=== PATIENT | female | born 1945 | race Caucasian/White ===

== ENCOUNTER → 2017-01-24 | Outpatient (REF) | payer MEDICARE, OTHER ==
[2017-01-30 08:07] LABS: D001-IgE D pteronyssinus 0.99 kU/L (Class II); E001-IgE Cat Epith/Dander < 0.10 kU/L (Class 0); E005-IgE Dog Dander < 0.10 kU/L (Class 0); G002-IgE Bermuda Grass < 0.10 kU/L (Class 0); G008-IgE Kentucky Bluegrass < 0.10 kU/L (Class 0); M001-IgE Penicillium chrysogen < 0.10 kU/L (Class 0); M002 IgE Cladosporium herbaru < 0.10 kU/L (Class 0); M003 IgE Aspergillus fumigatu < 0.10 kU/L (Class 0); M006-IgE Alternaria alternata < 0.10 kU/L (Class 0); T001-IgE Maple/Box Elder < 0.10 kU/L (Class 0); T007-IgE Oak, White < 0.10 kU/L (Class 0); T008-IgE Elm, American < 0.10 kU/L (Class 0); W001-IgE Ragweed, Short < 0.10 kU/L (Class 0); W014-IgE Pigweed, Rough < 0.10 kU/L (Class 0)
== END ==
LOC: M LAB REF 13:51
PROVIDERS: ATTEND Internal Medicine Pulmonary Disease
DX: J45.50 Severe persistent asthma, uncomplicated (principal)

== ENCOUNTER 2017-05-01 09:04 | Outpatient (CLI) | payer MEDICARE, BC, OTHER ==
[2017-05-01] MEDS: OMALIZUMAB 150 MG (XOLAIR) VIAL (J2357) SC (09:56)
== END 2017-05-01 11:05 | disposition home or self-care (01) ==
LOC: M INFU 09:04
DX: J45.50 Severe persistent asthma, uncomplicated (principal); Z88.0 Allergy status to penicillin; Z79.899 Other long term (current) drug therapy
CPT/HCPCS: 96372

== ENCOUNTER 2017-05-17 12:50 | Outpatient (CLI) | payer MEDICARE, BC, OTHER ==
[2017-05-17] MEDS: OMALIZUMAB 150 MG (XOLAIR) VIAL (J2357) SC (13:53)
== END 2017-05-17 15:45 | disposition home or self-care (01) ==
LOC: M INFU 12:50
DX: J45.50 Severe persistent asthma, uncomplicated (principal); I10 Essential (primary) hypertension; K21.9 Gastro-esophageal reflux disease without esophagitis; Z79.899 Other long term (current) drug therapy; Z88.0 Allergy status to penicillin
CPT/HCPCS: 96372

== ENCOUNTER 2017-05-30 09:39 | Outpatient (CLI) | payer MEDICARE, BC, OTHER ==
[2017-05-30] MEDS: OMALIZUMAB 150 MG (XOLAIR) VIAL (J2357) SC (09:46)
== END 2017-05-30 10:45 | disposition home or self-care (01) ==
LOC: M INFU 09:39
DX: J45.50 Severe persistent asthma, uncomplicated (principal); I10 Essential (primary) hypertension; K21.9 Gastro-esophageal reflux disease without esophagitis; Z79.899 Other long term (current) drug therapy; Z88.0 Allergy status to penicillin
CPT/HCPCS: J2357

== ENCOUNTER 2017-06-13 08:07 | Outpatient (CLI) | payer MEDICARE, BC, OTHER ==
[2017-06-13] MEDS: OMALIZUMAB 150 MG (XOLAIR) VIAL (J2357) SC (09:16)
== END 2017-06-13 10:30 | disposition home or self-care (01) ==
LOC: M INFU 08:07
DX: J45.50 Severe persistent asthma, uncomplicated (principal); K21.9 Gastro-esophageal reflux disease without esophagitis; Z79.899 Other long term (current) drug therapy; Z88.0 Allergy status to penicillin
CPT/HCPCS: J2357

== ENCOUNTER 2017-06-28 09:03 | Outpatient (CLI) | payer MEDICARE, BC, OTHER ==
[2017-06-28] MEDS: OMALIZUMAB 150 MG (XOLAIR) VIAL (J2357) SC (09:11)
== END 2017-06-28 10:15 | disposition home or self-care (01) ==
LOC: M INFU 09:03
DX: J45.50 Severe persistent asthma, uncomplicated (principal); Z88.0 Allergy status to penicillin; Z79.899 Other long term (current) drug therapy
CPT/HCPCS: J2357

== ENCOUNTER 2017-07-26 13:11 | Outpatient (CLI) | payer MEDICARE, BC, OTHER ==
[2017-07-26] MEDS: OMALIZUMAB 150 MG (XOLAIR) VIAL (J2357) SC (14:04)
== END 2017-07-26 15:00 | disposition home or self-care (01) ==
LOC: M INFU 13:11
DX: J45.50 Severe persistent asthma, uncomplicated (principal); Z79.899 Other long term (current) drug therapy
CPT/HCPCS: J2357

== ENCOUNTER 2017-08-09 16:07 | Outpatient (CLI) | payer MEDICARE, BC, OTHER ==
[2017-08-09] MEDS: OMALIZUMAB 150 MG (XOLAIR) VIAL (J2357) SC (16:25)
== END 2017-08-09 17:25 | disposition home or self-care (01) ==
LOC: M INFU 16:07
DX: J45.50 Severe persistent asthma, uncomplicated (principal); G47.30 Sleep apnea, unspecified; K21.9 Gastro-esophageal reflux disease without esophagitis; Z79.899 Other long term (current) drug therapy; Z88.0 Allergy status to penicillin
CPT/HCPCS: J2357

== ENCOUNTER 2017-08-22 12:28 | Outpatient (CLI) | payer MEDICARE, BC, OTHER ==
[2017-08-22] MEDS: OMALIZUMAB 150 MG (XOLAIR) VIAL (J2357) SC (13:04)
== END 2017-08-22 14:00 | disposition home or self-care (01) ==
LOC: M INFU 12:28
DX: J45.50 Severe persistent asthma, uncomplicated (principal); K21.9 Gastro-esophageal reflux disease without esophagitis; Z79.899 Other long term (current) drug therapy; Z88.0 Allergy status to penicillin; Z98.51 Tubal ligation status
CPT/HCPCS: J2357

== ENCOUNTER 2017-09-05 15:31 | Outpatient (CLI) | payer MEDICARE, BC, OTHER ==
[2017-09-05] MEDS: OMALIZUMAB 150 MG (XOLAIR) VIAL (J2357) SC (15:58)
== END 2017-09-05 16:45 | disposition home or self-care (01) ==
LOC: M INFU 15:31
DX: J45.50 Severe persistent asthma, uncomplicated (principal); K21.9 Gastro-esophageal reflux disease without esophagitis; Z79.899 Other long term (current) drug therapy; Z88.0 Allergy status to penicillin
CPT/HCPCS: J2357

== ENCOUNTER 2017-09-19 07:21 | Outpatient (CLI) | payer MEDICARE, BC, OTHER ==
[2017-09-19] MEDS: OMALIZUMAB 150 MG (XOLAIR) VIAL (J2357) SC (08:25)
== END 2017-09-19 09:00 | disposition home or self-care (01) ==
LOC: M INFU 07:21
DX: J45.50 Severe persistent asthma, uncomplicated (principal); Z79.899 Other long term (current) drug therapy; Z80.0 Family history of malignant neoplasm of digestive organs; K21.9 Gastro-esophageal reflux disease without esophagitis
CPT/HCPCS: J2357

== ENCOUNTER 2017-10-03 13:29 | Outpatient (CLI) | payer MEDICARE, BC, OTHER ==
[2017-10-03] MEDS ORDERED: OMALIZUMAB 150 MG (XOLAIR) VIAL (J2357) SC (14:00)
[2017-10-03] MEDS ORDERED: MIXING FEE FOR PATIENT OWN MEDS SUPPLIED BY INSURANCE/PT XX (14:00)
== END 2017-10-03 15:05 | disposition home or self-care (01) ==
LOC: M INFU 13:29
DX: J45.50 Severe persistent asthma, uncomplicated (principal); Z88.0 Allergy status to penicillin; Z79.899 Other long term (current) drug therapy
CPT/HCPCS: 96372

== ENCOUNTER 2017-10-17 11:46 | Outpatient (CLI) | payer MEDICARE, BC, OTHER ==
[2017-10-22] MEDS ORDERED: MIXING FEE FOR PATIENT OWN MEDS SUPPLIED BY INSURANCE/PT XX (12:00)
[2017-10-22] MEDS: OMALIZUMAB 150 MG (XOLAIR) VIAL (J2357) SC (12:08)
== END 2017-10-22 14:00 | disposition home or self-care (01) ==
LOC: M INFU 11:46
DX: J45.50 Severe persistent asthma, uncomplicated (principal); Z88.0 Allergy status to penicillin; Z79.899 Other long term (current) drug therapy
CPT/HCPCS: 96372

== ENCOUNTER 2017-11-05 07:55 | Outpatient (CLI) | payer MEDICARE, BC, OTHER ==
[2017-11-05] MEDS ORDERED: MIXING FEE FOR PATIENT OWN MEDS SUPPLIED BY INSURANCE/PT XX ×2 (08:15)
[2017-11-05] MEDS: OMALIZUMAB 150 MG (XOLAIR) VIAL (J2357) SC ×2 (09:14)
== END 2017-11-05 09:30 | disposition home or self-care (01) ==
LOC: M INFU 07:55
DX: J45.50 Severe persistent asthma, uncomplicated (principal); Z88.0 Allergy status to penicillin; Z79.899 Other long term (current) drug therapy
CPT/HCPCS: 96372

== ENCOUNTER 2017-11-19 08:57 | Outpatient (CLI) | payer MEDICARE, BC, OTHER ==
[2017-11-19] MEDS ORDERED: MIXING FEE FOR PATIENT OWN MEDS SUPPLIED BY INSURANCE/PT XX (10:00)
[2017-11-19] MEDS: OMALIZUMAB 150 MG (XOLAIR) VIAL (J2357) SC (10:02)
== END 2017-11-19 10:30 | disposition home or self-care (01) ==
LOC: M INFU 08:57
DX: J45.50 Severe persistent asthma, uncomplicated (principal); Z88.0 Allergy status to penicillin; Z79.899 Other long term (current) drug therapy
CPT/HCPCS: 36415

== ENCOUNTER → 2017-12-10 | Outpatient (CLI) | payer MEDICARE, BC, OTHER ==
[~2017-12-10] MED LIST: MIXING FEE FOR PATIENT OWN MEDS SUPPLIED BY INSURANCE/PT XX
[2017-12-10] MEDS: OMALIZUMAB 150 MG (XOLAIR) VIAL (J2357) SC (12:12)
== END ==
LOC: M INFU 11:15
DX: J45.50 Severe persistent asthma, uncomplicated (principal); Z88.0 Allergy status to penicillin; Z79.899 Other long term (current) drug therapy
CPT/HCPCS: 96372

== ENCOUNTER → 2017-12-24 | Outpatient (CLI) | payer MEDICARE, BC, OTHER ==
[~2017-12-24] MED LIST changes: -MIXING FEE FOR PATIENT OWN MEDS SUPPLIED BY INSURANCE/PT XX; +OMALIZUMAB 150 MG (XOLAIR) VIAL (J2357) SC
== END ==
LOC: M INFU 12:00
DX: J45.909 Unspecified asthma, uncomplicated (principal); Z53.8 Procedure and treatment not carried out for other reasons

== ENCOUNTER 2017-12-31 07:55 | Outpatient (CLI) | payer MEDICARE, BC, OTHER ==
[2017-12-31] MEDS: OMALIZUMAB 150 MG (XOLAIR) VIAL (J2357) SC (08:50)
== END 2017-12-31 09:30 | disposition home or self-care (01) ==
LOC: M INFU 07:55
DX: J45.50 Severe persistent asthma, uncomplicated (principal); Z88.0 Allergy status to penicillin; Z79.899 Other long term (current) drug therapy
CPT/HCPCS: 96372

== ENCOUNTER 2018-01-15 11:14 | Outpatient (CLI) | payer MEDICARE, BC, OTHER ==
[2018-01-15] MEDS: OMALIZUMAB 150 MG (XOLAIR) VIAL (J2357) SC (12:18)
== END 2018-01-15 13:00 | disposition home or self-care (01) ==
LOC: M INFU 11:14
DX: J45.50 Severe persistent asthma, uncomplicated (principal); Z88.0 Allergy status to penicillin; Z79.899 Other long term (current) drug therapy
CPT/HCPCS: 96372

== ENCOUNTER 2018-01-29 12:01 | Outpatient (CLI) | payer MEDICARE, BC, OTHER ==
[2018-01-29] MEDS: OMALIZUMAB 150 MG (XOLAIR) VIAL (J2357) SC (12:13)
== END 2018-01-29 12:35 | disposition home or self-care (01) ==
LOC: M INFU 12:01
DX: J45.50 Severe persistent asthma, uncomplicated (principal); Z79.899 Other long term (current) drug therapy; Z88.0 Allergy status to penicillin
CPT/HCPCS: 96372

== ENCOUNTER 2018-02-14 13:10 | Outpatient (CLI) | payer MEDICARE, BC, OTHER ==
[2018-02-14] MEDS: OMALIZUMAB 150 MG (XOLAIR) VIAL (J2357) SC (14:13)
== END 2018-02-14 14:25 | disposition home or self-care (01) ==
LOC: M INFU 13:10
DX: J45.50 Severe persistent asthma, uncomplicated (principal); Z88.0 Allergy status to penicillin
CPT/HCPCS: 96372

== ENCOUNTER 2018-03-07 10:28 | Outpatient (CLI) | payer MEDICARE, BC, OTHER ==
[~2018-03-07] VITALS: Ht 156.5 cm; Wt 75.4 kg
[~2018-03-07 10:28] MED LIST changes: +ADV500INH INH; +FLUT22IN INH; -OMALIZUMAB 150 MG (XOLAIR) VIAL (J2357) SC; +PANT40TA3 PO; +PROAAER10 INH; +SERT50TA PO; +SING10TA32 PO; +XOLA150S SC
[2018-03-07 10:30] VITALS: BP 169/74
[2018-03-07] MEDS ORDERED: OMALIZUMAB 150 MG (XOLAIR) VIAL (J2357) SC ONE (11:00)
[2018-03-07 11:15] VITALS: BP 141/70
== END 2018-03-07 11:30 | disposition home or self-care (01) ==
LOC: M INFU 10:28
PROVIDERS: ATTEND Internal Medicine Pulmonary Disease
DX: J45.50 Severe persistent asthma, uncomplicated (principal); Z79.899 Other long term (current) drug therapy; Z88.0 Allergy status to penicillin

== ENCOUNTER 2018-03-24 08:35 | Outpatient (CLI) | payer MEDICARE, BC, OTHER ==
[~2018-03-24] VITALS: Ht 157.5 cm; Wt 75.0 kg
[2018-03-24 08:40] VITALS: BP 160/73
[2018-03-24] MEDS ORDERED: OMALIZUMAB 150 MG (XOLAIR) VIAL (J2357) SC ONE (09:00)
[2018-03-24 09:39] VITALS: BP 141/78
== END 2018-03-24 10:00 | disposition home or self-care (01) ==
LOC: M INFU 08:35
PROVIDERS: ATTEND Internal Medicine Pulmonary Disease
DX: J45.50 Severe persistent asthma, uncomplicated (principal); Z88.0 Allergy status to penicillin

== ENCOUNTER 2018-04-10 13:16 | Outpatient (CLI) | payer MEDICARE, BC, OTHER ==
[~2018-04-10] VITALS: Ht 157.5 cm; Wt 74.5 kg
[2018-04-10 13:20] VITALS: BP 136/65
[2018-04-10] MEDS ORDERED: OMALIZUMAB 150 MG (XOLAIR) VIAL (J2357) SC ONE (13:30)
[2018-04-10 14:30] VITALS: BP 142/72
== END 2018-04-10 14:30 | disposition home or self-care (01) ==
LOC: M INFU 13:16
PROVIDERS: ATTEND Internal Medicine Pulmonary Disease
DX: J45.50 Severe persistent asthma, uncomplicated (principal)

== ENCOUNTER 2018-05-05 08:46 | Outpatient (CLI) | payer MEDICARE, BC, OTHER ==
[~2018-05-05] VITALS: Ht 157.5 cm; Wt 74.5 kg
[2018-05-05 08:50] VITALS: BP 133/71
[2018-05-05] MEDS ORDERED: OMALIZUMAB 150 MG (XOLAIR) VIAL (J2357) SC ONE (09:00)
[2018-05-05 10:00] VITALS: BP 123/75
== END 2018-05-05 10:00 | disposition home or self-care (01) ==
LOC: M INFU 08:46
PROVIDERS: ATTEND Internal Medicine Pulmonary Disease
DX: J45.50 Severe persistent asthma, uncomplicated (principal); Z88.0 Allergy status to penicillin; Z79.899 Other long term (current) drug therapy

== ENCOUNTER 2018-05-26 13:28 | Outpatient (CLI) | payer MEDICARE, BC, OTHER ==
[~2018-05-26] VITALS: Ht 157.5 cm; Wt 74.5 kg
[2018-05-26 13:30] VITALS: BP 156/75
[2018-05-26] MEDS ORDERED: OMALIZUMAB 150 MG (XOLAIR) VIAL (J2357) SC ONE (14:00)
[2018-05-26 14:45] VITALS: BP 126/69
== END 2018-05-26 14:45 | disposition home or self-care (01) ==
LOC: M INFU 13:28
PROVIDERS: ATTEND Internal Medicine Pulmonary Disease
DX: J45.50 Severe persistent asthma, uncomplicated (principal); Z79.899 Other long term (current) drug therapy; Z88.0 Allergy status to penicillin

== ENCOUNTER 2018-06-09 13:24 | Outpatient (CLI) | payer MEDICARE, BC, OTHER ==
[~2018-06-09] VITALS: Ht 157.5 cm; Wt 74.5 kg
[2018-06-09 13:30] VITALS: BP 151/67
[2018-06-09] MEDS ORDERED: OMALIZUMAB 150 MG (XOLAIR) VIAL (J2357) SC ONE (14:00)
[2018-06-09 14:59] VITALS: BP 159/72
== END 2018-06-09 15:00 | disposition home or self-care (01) ==
LOC: M INFU 13:24
PROVIDERS: ATTEND Internal Medicine Pulmonary Disease
DX: J45.50 Severe persistent asthma, uncomplicated (principal); Z88.0 Allergy status to penicillin; Z79.899 Other long term (current) drug therapy

== ENCOUNTER 2018-06-23 13:34 | Outpatient (CLI) | payer MEDICARE, BC, OTHER ==
[~2018-06-23] VITALS: Ht 157.5 cm; Wt 74.5 kg
[2018-06-23 13:40] VITALS: BP 140/62
[2018-06-23] MEDS ORDERED: OMALIZUMAB 150 MG (XOLAIR) VIAL (J2357) SC ONE (14:30)
[2018-06-23 14:50] VITALS: BP 130/72
== END 2018-06-23 14:50 | disposition home or self-care (01) ==
LOC: M INFU 13:34
PROVIDERS: ATTEND Internal Medicine Pulmonary Disease
DX: J45.50 Severe persistent asthma, uncomplicated (principal); Z79.899 Other long term (current) drug therapy; Z80.0 Family history of malignant neoplasm of digestive organs

== ENCOUNTER 2018-07-07 13:17 | Outpatient (CLI) | payer MEDICARE, BC, OTHER ==
[~2018-07-07] VITALS: Ht 157.5 cm; Wt 74.6 kg
[~2018-07-07 13:17] MED LIST changes: +SERT-141 PO; -SERT50TA PO
[2018-07-07 13:30] VITALS: BP 164/69
[2018-07-07] MEDS ORDERED: OMALIZUMAB 150 MG (XOLAIR) VIAL (J2357) SC ONE (14:00)
[2018-07-07 14:20] VITALS: BP 133/89
[2018-07-08] MEDS ORDERED: SIMV10TA2 PO (13:54)
[2018-07-08] MEDS ORDERED: LOSA50TA88 PO (13:54)
== END 2018-07-07 14:20 | disposition home or self-care (01) ==
LOC: M INFU 13:17
PROVIDERS: ATTEND Internal Medicine Pulmonary Disease
DX: J45.50 Severe persistent asthma, uncomplicated (principal); Z88.0 Allergy status to penicillin

== ENCOUNTER 2018-07-21 13:32 | Outpatient (CLI) | payer MEDICARE, BC, OTHER ==
[~2018-07-21] VITALS: Ht 157.5 cm; Wt 74.5 kg
[~2018-07-21 13:32] MED LIST changes: +LOSA50TA88 PO; +SIMV10TA2 PO
[2018-07-21 13:35] VITALS: BP 158/68
[2018-07-21] MEDS ORDERED: OMALIZUMAB 150 MG (XOLAIR) VIAL (J2357) SC ONE (14:00)
[2018-07-21 15:00] VITALS: BP 164/70
== END 2018-07-21 15:00 | disposition home or self-care (01) ==
LOC: M INFU 13:32
PROVIDERS: ATTEND Internal Medicine Pulmonary Disease
DX: J45.50 Severe persistent asthma, uncomplicated (principal); Z88.0 Allergy status to penicillin; Z79.899 Other long term (current) drug therapy

== ENCOUNTER 2018-08-08 13:19 | Outpatient (CLI) | payer MEDICARE, BC, OTHER ==
[~2018-08-08] VITALS: Ht 157.5 cm; Wt 74.5 kg
[2018-08-08 13:35] VITALS: BP 149/67
[2018-08-08] MEDS ORDERED: OMALIZUMAB 150 MG (XOLAIR) VIAL (J2357) SC ONE (14:00)
[2018-08-08 14:45] VITALS: BP 140/75
== END 2018-08-08 14:45 | disposition home or self-care (01) ==
LOC: M INFU 13:19
PROVIDERS: ATTEND Internal Medicine Pulmonary Disease
DX: J45.50 Severe persistent asthma, uncomplicated (principal); Z88.0 Allergy status to penicillin; Z79.899 Other long term (current) drug therapy

== ENCOUNTER 2018-08-27 15:02 | Outpatient (CLI) | payer MEDICARE, BC, OTHER ==
[~2018-08-27] VITALS: Ht 157.5 cm; Wt 74.5 kg
[2018-08-27 15:32] VITALS: BP 145/75
[2018-08-27] MEDS ORDERED: OMALIZUMAB 150 MG (XOLAIR) VIAL (J2357) SC ONE (16:00)
[2018-08-27 16:20] VITALS: BP 166/71
== END 2018-08-27 16:25 | disposition home or self-care (01) ==
LOC: M INFU 15:02
PROVIDERS: ATTEND Internal Medicine Pulmonary Disease
DX: J45.50 Severe persistent asthma, uncomplicated (principal); Z79.899 Other long term (current) drug therapy; Z88.0 Allergy status to penicillin

== ENCOUNTER 2018-10-03 13:20 | Outpatient (CLI) | payer MEDICARE, BC, OTHER ==
[~2018-10-03] VITALS: Ht 157.5 cm; Wt 74.5 kg
[2018-10-03] MEDS ORDERED: OMALIZUMAB 150 MG (XOLAIR) VIAL (J2357) SC ONE (13:30)
[2018-10-03 13:47] VITALS: BP 129/79
[2018-10-03 14:15] VITALS: BP 146/69
== END 2018-10-03 13:25 | disposition home or self-care (01) ==
LOC: M INFU 13:20
PROVIDERS: ATTEND Internal Medicine Pulmonary Disease
DX: J45.50 Severe persistent asthma, uncomplicated (principal); Z79.899 Other long term (current) drug therapy; Z88.0 Allergy status to penicillin

== ENCOUNTER 2018-10-17 11:32 | Outpatient (CLI) | payer MEDICARE, BC, OTHER ==
[~2018-10-17] VITALS: Ht 157.5 cm; Wt 74.5 kg
[~2018-10-17 11:32] MED LIST changes: -SIMV10TA2 PO; +SIMV10TA21 PO
[2018-10-17 11:40] VITALS: BP 160/78
[2018-10-17] MEDS ORDERED: OMALIZUMAB 150 MG (XOLAIR) VIAL (J2357 PER 5MG) SC ONE (12:00)
[2018-10-17 13:40] VITALS: BP 122/68
== END 2018-10-17 13:40 | disposition home or self-care (01) ==
LOC: M INFU 11:32
PROVIDERS: ATTEND Internal Medicine Pulmonary Disease
DX: J45.50 Severe persistent asthma, uncomplicated (principal); Z79.899 Other long term (current) drug therapy; Z88.0 Allergy status to penicillin

== ENCOUNTER 2018-10-31 15:35 | Outpatient (CLI) | payer MEDICARE, BC, OTHER ==
[~2018-10-31] VITALS: Ht 157.5 cm; Wt 74.5 kg
[~2018-10-31 15:35] MED LIST changes: +SIMV10TA2 PO; -SIMV10TA21 PO
[2018-10-31 15:45] VITALS: BP 106/66
[2018-10-31] MEDS ORDERED: OMALIZUMAB 150 MG (XOLAIR) VIAL (J2357) SC ONE (16:00)
[2018-10-31 16:45] VITALS: BP 118/76
== END 2018-10-31 16:45 | disposition home or self-care (01) ==
LOC: M INFU 15:35
PROVIDERS: ATTEND Internal Medicine Pulmonary Disease
DX: J45.909 Unspecified asthma, uncomplicated (principal); Z79.899 Other long term (current) drug therapy

== ENCOUNTER 2018-11-18 13:34 | Outpatient (CLI) | payer MEDICARE, BC, OTHER ==
[~2018-11-18] VITALS: Ht 158.8 cm; Wt 72.9 kg
[~2018-11-18 13:34] MED LIST changes: -SIMV10TA2 PO; +SIMV10TA21 PO
[2018-11-18 13:35] VITALS: BP 133/67
[2018-11-18] MEDS ORDERED: OMALIZUMAB 150 MG (XOLAIR) VIAL (J2357 PER 5MG) SC ONE (14:00)
[2018-11-18 14:40] VITALS: BP 148/66
== END 2018-11-18 14:40 | disposition home or self-care (01) ==
LOC: M INFU 13:34
PROVIDERS: ATTEND Internal Medicine Pulmonary Disease
DX: J45.50 Severe persistent asthma, uncomplicated (principal); Z79.899 Other long term (current) drug therapy

== ENCOUNTER 2018-12-04 12:45 | Outpatient (CLI) | payer MEDICARE, BC, OTHER ==
[~2018-12-04] VITALS: Ht 157.5 cm; Wt 74.4 kg
[2018-12-04 12:45] VITALS: BP 151/75
[~2018-12-04 12:45] MED LIST changes: +SIMV10TA2 PO; -SIMV10TA21 PO
[2018-12-04] MEDS ORDERED: OMALIZUMAB 150 MG (XOLAIR) VIAL (J2357 PER 5MG) SC ONE (13:00)
[2018-12-04 13:50] VITALS: BP 147/65
== END 2018-12-04 13:50 | disposition home or self-care (01) ==
LOC: M INFU 12:45
PROVIDERS: ATTEND Internal Medicine Pulmonary Disease
DX: J45.50 Severe persistent asthma, uncomplicated (principal); Z79.899 Other long term (current) drug therapy; Z88.0 Allergy status to penicillin

== ENCOUNTER 2018-12-18 13:58 | Outpatient (CLI) | payer MEDICARE, BC, OTHER ==
[~2018-12-18] VITALS: Ht 157.5 cm; Wt 74.5 kg
[2018-12-18 14:00] VITALS: BP 143/74
[2018-12-18] MEDS ORDERED: OMALIZUMAB 150 MG (XOLAIR) VIAL (J2357 PER 5MG) SC ONE (15:00)
[2018-12-18 15:15] VITALS: BP 150/72
== END 2018-12-18 15:15 | disposition home or self-care (01) ==
LOC: M INFU 13:58
PROVIDERS: ATTEND Internal Medicine Pulmonary Disease
DX: J45.50 Severe persistent asthma, uncomplicated (principal)

== ENCOUNTER 2019-01-08 13:35 | Outpatient (CLI) | payer MEDICARE, BC, OTHER ==
[~2019-01-08] VITALS: Ht 157.5 cm; Wt 74.4 kg
[2019-01-08 13:40] VITALS: BP 148/86
[2019-01-08] MEDS ORDERED: OMALIZUMAB 150 MG (XOLAIR) VIAL (J2357 PER 5MG) SC ONE (14:30)
[2019-01-08 14:50] VITALS: BP 130/77
== END 2019-01-08 14:50 | disposition home or self-care (01) ==
LOC: M INFU 13:35
PROVIDERS: ATTEND Internal Medicine Pulmonary Disease
DX: J45.50 Severe persistent asthma, uncomplicated (principal); Z79.899 Other long term (current) drug therapy; Z88.0 Allergy status to penicillin

== ENCOUNTER 2019-01-22 13:31 | Outpatient (CLI) | payer MEDICARE, BC, OTHER ==
[~2019-01-22] VITALS: Ht 157.5 cm; Wt 74.4 kg
[2019-01-22 13:35] VITALS: BP 138/67
[2019-01-22] MEDS ORDERED: OMALIZUMAB 150 MG (XOLAIR) VIAL (J2357 PER 5MG) SC ONE (14:00)
[2019-01-22 14:45] VITALS: BP 153/71
== END 2019-01-22 14:45 | disposition home or self-care (01) ==
LOC: M INFU 13:31
PROVIDERS: ATTEND Internal Medicine Pulmonary Disease
DX: J45.50 Severe persistent asthma, uncomplicated (principal); Z79.899 Other long term (current) drug therapy; Z88.0 Allergy status to penicillin

== ENCOUNTER 2019-02-05 13:52 | Outpatient (CLI) | payer MEDICARE, BC, OTHER ==
[~2019-02-05] VITALS: Ht 157.5 cm; Wt 74.4 kg
[2019-02-05 14:00] VITALS: BP 127/69
[2019-02-05] MEDS ORDERED: OMALIZUMAB 150 MG (XOLAIR) VIAL (J2357 PER 5MG) SC ONE (14:30)
[2019-02-05 14:40] VITALS: BP 149/72
== END 2019-02-05 14:40 | disposition home or self-care (01) ==
LOC: M INFU 13:52
PROVIDERS: ATTEND Internal Medicine Pulmonary Disease
DX: J45.50 Severe persistent asthma, uncomplicated (principal); Z88.0 Allergy status to penicillin; Z79.899 Other long term (current) drug therapy

== ENCOUNTER 2019-02-19 13:33 | Outpatient (CLI) | payer MEDICARE, BC, OTHER ==
[~2019-02-19] VITALS: Ht 157.5 cm; Wt 74.5 kg
[2019-02-19 13:53] VITALS: BP 131/77
[2019-02-19] MEDS ORDERED: OMALIZUMAB 150 MG (XOLAIR) VIAL (J2357 PER 5MG) SC ONE (14:00)
[2019-02-19 14:40] VITALS: BP 132/74
== END 2019-02-19 14:32 | disposition home or self-care (01) ==
LOC: M INFU 13:33
PROVIDERS: ATTEND Internal Medicine Pulmonary Disease
DX: J45.50 Severe persistent asthma, uncomplicated (principal); Z88.0 Allergy status to penicillin; Z79.51 Long term (current) use of inhaled steroids; Z79.899 Other long term (current) drug therapy

== ENCOUNTER 2019-03-26 13:03 | Outpatient (CLI) | payer MEDICARE, BC, OTHER ==
[~2019-03-26] VITALS: Ht 157.5 cm; Wt 74.5 kg
[~2019-03-26 13:03] MED LIST changes: -SIMV10TA2 PO; +SIMV10TA21 PO
[2019-03-26 13:22] VITALS: BP 167/85
[2019-03-26] MEDS ORDERED: OMALIZUMAB 150MG 1ML SYRINGE (XOLAIR) (J2357 PER 5MG) SQ ONE ×2 (14:00)
[2019-03-26] MEDS ORDERED: OMALIZUMAB SQ ONE (14:00)
[2019-03-26 14:26] VITALS: BP 142/78
== END 2019-03-26 14:20 | disposition home or self-care (01) ==
LOC: M INFU 13:03
PROVIDERS: ATTEND Internal Medicine Pulmonary Disease
DX: J45.50 Severe persistent asthma, uncomplicated (principal); Z88.0 Allergy status to penicillin

== ENCOUNTER → 2019-04-09 | Outpatient (CLI) | payer MEDICARE, BC, OTHER | LOC: M INFU 14:42 | PROVIDERS: ATTEND Internal Medicine Pulmonary Disease | DX: J45.50 Severe persistent asthma, uncomplicated (principal); Z53.9 Procedure and treatment not carried out, unspecified reason ==

== ENCOUNTER 2019-04-17 12:53 | Outpatient (CLI) | payer MEDICARE, BC, OTHER ==
[~2019-04-17] VITALS: Ht 157.5 cm; Wt 74.4 kg
[2019-04-17 13:13] VITALS: BP 139/88
[2019-04-17 13:39] VITALS: BP 134/79
[2019-04-17] MEDS ORDERED: OMALIZUMAB SQ ONE (14:00)
[2019-04-17] MEDS ORDERED: OMALIZUMAB 150MG 1ML SYRINGE (XOLAIR) (J2357 PER 5MG) SQ ONE (14:00)
== END 2019-04-17 14:00 | disposition home or self-care (01) ==
LOC: M INFU 12:53
PROVIDERS: ATTEND Internal Medicine Pulmonary Disease
DX: J45.50 Severe persistent asthma, uncomplicated (principal); Z88.0 Allergy status to penicillin

== ENCOUNTER 2019-05-06 13:11 | Outpatient (CLI) | payer MEDICARE, BC, OTHER ==
[~2019-05-06] VITALS: Ht 157.5 cm; Wt 74.5 kg
[2019-05-06 13:22] VITALS: BP 129/67
[2019-05-06] MEDS ORDERED: OMALIZUMAB 150MG 1ML SYRINGE (XOLAIR) (J2357 PER 5MG) SQ ONE (14:00)
[2019-05-06] MEDS ORDERED: OMALIZUMAB SQ ONE (14:00)
[2019-05-06 14:15] VITALS: BP 135/67
== END 2019-05-06 14:15 | disposition home or self-care (01) ==
LOC: M INFU 13:11
PROVIDERS: ATTEND Internal Medicine Pulmonary Disease
DX: J45.50 Severe persistent asthma, uncomplicated (principal); Z88.0 Allergy status to penicillin

== ENCOUNTER 2019-05-20 13:00 | Outpatient (CLI) | payer MEDICARE, BC, OTHER ==
[~2019-05-20] VITALS: Ht 157.5 cm; Wt 74.6 kg
[2019-05-20 13:10] VITALS: BP 159/79
[2019-05-20] MEDS ORDERED: OMALIZUMAB SQ ONE (14:00)
[2019-05-20] MEDS ORDERED: OMALIZUMAB 150MG 1ML SYRINGE (XOLAIR) (J2357 PER 5MG) SQ ONE (14:00)
== END 2019-05-20 13:30 | disposition home or self-care (01) ==
LOC: M INFU 13:00
PROVIDERS: ATTEND Internal Medicine Pulmonary Disease
DX: J45.50 Severe persistent asthma, uncomplicated (principal); Z88.0 Allergy status to penicillin

== ENCOUNTER 2019-06-03 12:51 | Outpatient (CLI) | payer MEDICARE, BC, OTHER ==
[~2019-06-03] VITALS: Ht 157.5 cm; Wt 74.5 kg
[2019-06-03 13:00] VITALS: BP 160/93
[2019-06-03] MEDS ORDERED: OMALIZUMAB 150MG 1ML SYRINGE (XOLAIR) (J2357 PER 5MG) SQ ONE ×2 (13:00→13:30)
[2019-06-03] MEDS ORDERED: OMALIZUMAB 150 MG (XOLAIR) VIAL (J2357 PER 5MG) SC ONE (13:30)
[2019-06-03] MEDS ORDERED: OMALIZUMAB SQ ONE (13:30)
[2019-06-03 14:20] VITALS: BP 152/77
== END 2019-06-03 14:20 | disposition home or self-care (01) ==
LOC: M INFU 12:51
PROVIDERS: ATTEND Internal Medicine Pulmonary Disease
DX: J45.50 Severe persistent asthma, uncomplicated (principal); Z88.0 Allergy status to penicillin

== ENCOUNTER 2019-06-17 13:12 | Outpatient (CLI) | payer MEDICARE, BC, OTHER ==
[~2019-06-17] VITALS: Ht 157.5 cm; Wt 74.4 kg
[2019-06-17 13:30] VITALS: BP 146/81
[2019-06-17] MEDS ORDERED: OMALIZUMAB 150MG 1ML SYRINGE (XOLAIR) (J2357 PER 5MG) SQ ONE (14:00)
[2019-06-17] MEDS ORDERED: OMALIZUMAB SQ ONE (14:00)
[2019-06-17 15:45] VITALS: BP 138/76
== END 2019-06-17 14:00 | disposition home or self-care (01) ==
LOC: M INFU 13:12
PROVIDERS: ATTEND Internal Medicine Pulmonary Disease
DX: J45.50 Severe persistent asthma, uncomplicated (principal); Z88.0 Allergy status to penicillin

== ENCOUNTER 2019-07-01 12:57 | Outpatient (CLI) | payer MEDICARE, BC, OTHER ==
[~2019-07-01] VITALS: Ht 157.5 cm; Wt 74.4 kg
[2019-07-01 13:00] VITALS: BP 130/72
[2019-07-01] MEDS ORDERED: OMALIZUMAB SQ ONE (14:00)
[2019-07-01] MEDS ORDERED: OMALIZUMAB 150MG 1ML SYRINGE (XOLAIR) (J2357 PER 5MG) SQ ONE (14:00)
== END 2019-07-01 13:45 | disposition home or self-care (01) ==
LOC: M INFU 12:57
PROVIDERS: ATTEND Internal Medicine Pulmonary Disease
DX: J45.50 Severe persistent asthma, uncomplicated (principal); Z88.0 Allergy status to penicillin

== ENCOUNTER 2019-07-21 12:55 | Outpatient (CLI) | payer MEDICARE, BC, OTHER ==
[~2019-07-21] VITALS: Ht 157.5 cm; Wt 74.5 kg
[2019-07-21 13:17] VITALS: BP 140/66
[2019-07-21] MEDS ORDERED: OMALIZUMAB 150MG 1ML SYRINGE (XOLAIR) (J2357 PER 5MG) SQ SCH (14:00)
[2019-07-21] MEDS ORDERED: OMALIZUMAB SQ ONE (14:00)
== END 2019-07-21 13:25 | disposition home or self-care (01) ==
LOC: M INFU 12:55
PROVIDERS: ATTEND Internal Medicine Pulmonary Disease
DX: J45.50 Severe persistent asthma, uncomplicated (principal); Z88.0 Allergy status to penicillin

== ENCOUNTER 2019-08-04 12:45 | Outpatient (CLI) | payer MEDICARE, BC, OTHER ==
[~2019-08-04] VITALS: Ht 157.5 cm; Wt 74.5 kg
[2019-08-04] MEDS ORDERED: OMALIZUMAB 150MG 1ML SYRINGE (XOLAIR) (J2357 PER 5MG) SQ ONE (13:00)
[2019-08-04] MEDS ORDERED: OMALIZUMAB SQ ONE (13:00)
[2019-08-04 13:04] VITALS: BP 148/82
== END 2019-08-04 13:50 | disposition home or self-care (01) ==
LOC: M INFU 12:45
PROVIDERS: ATTEND Internal Medicine Pulmonary Disease
DX: J45.50 Severe persistent asthma, uncomplicated (principal); Z79.899 Other long term (current) drug therapy; Z88.0 Allergy status to penicillin

== ENCOUNTER 2019-08-18 13:14 | Outpatient (CLI) | payer MEDICARE, BC, OTHER ==
[~2019-08-18] VITALS: Ht 157.5 cm; Wt 74.5 kg
[2019-08-18 13:22] VITALS: BP 150/73
[2019-08-18] MEDS ORDERED: OMALIZUMAB SQ ONE (13:30)
[2019-08-18] MEDS ORDERED: OMALIZUMAB 150MG 1ML SYRINGE (XOLAIR) (J2357 PER 5MG) SQ ONE (13:30)
== END 2019-08-18 13:40 | disposition home or self-care (01) ==
LOC: M INFU 13:14
PROVIDERS: ATTEND Internal Medicine Pulmonary Disease
DX: J45.50 Severe persistent asthma, uncomplicated (principal); Z79.899 Other long term (current) drug therapy; Z88.0 Allergy status to penicillin

== ENCOUNTER 2019-09-04 13:38 | Outpatient (CLI) | payer MEDICARE, BC, OTHER ==
[~2019-09-04] VITALS: Ht 157.5 cm; Wt 74.5 kg
[2019-09-04 13:46] VITALS: BP 129/58
[2019-09-04] MEDS ORDERED: OMALIZUMAB SQ ONE (14:00)
[2019-09-04] MEDS ORDERED: OMALIZUMAB 150MG 1ML SYRINGE (XOLAIR) (J2357 PER 5MG) SQ ONE (14:00)
[2019-09-04 14:35] VITALS: BP 134/65
== END 2019-09-04 14:35 | disposition home or self-care (01) ==
LOC: M INFU 13:38
PROVIDERS: ATTEND Internal Medicine Pulmonary Disease
DX: J45.50 Severe persistent asthma, uncomplicated (principal); Z79.899 Other long term (current) drug therapy; Z88.0 Allergy status to penicillin

== ENCOUNTER 2019-09-18 13:12 | Outpatient (CLI) | payer MEDICARE, BC, OTHER ==
[~2019-09-18] VITALS: Ht 157.5 cm; Wt 74.4 kg
[2019-09-18 13:15] VITALS: BP 132/70
[2019-09-18] MEDS ORDERED: OMALIZUMAB SQ ONE (13:30)
[2019-09-18] MEDS ORDERED: OMALIZUMAB 150MG 1ML SYRINGE (XOLAIR) (J2357 PER 5MG) SQ ONE (13:30)
== END 2019-09-18 13:45 | disposition home or self-care (01) ==
LOC: M INFU 13:12
PROVIDERS: ATTEND Internal Medicine Pulmonary Disease
DX: J45.50 Severe persistent asthma, uncomplicated (principal); Z88.0 Allergy status to penicillin; Z79.899 Other long term (current) drug therapy

== ENCOUNTER 2019-10-06 13:01 | Outpatient (CLI) | payer MEDICARE, BC, OTHER ==
[~2019-10-06] VITALS: Ht 157.5 cm; Wt 74.4 kg
[2019-10-06] MEDS ORDERED: OMALIZUMAB SQ ONE (14:00)
[2019-10-06] MEDS ORDERED: OMALIZUMAB 150MG 1ML SYRINGE (XOLAIR) (J2357 PER 5MG) SQ ONE (14:00)
== END 2019-10-06 13:35 | disposition home or self-care (01) ==
LOC: M INFU 13:01
PROVIDERS: ATTEND Internal Medicine Pulmonary Disease
DX: J45.50 Severe persistent asthma, uncomplicated (principal); Z79.899 Other long term (current) drug therapy; Z88.0 Allergy status to penicillin

== ENCOUNTER 2019-10-23 14:40 | Outpatient (CLI) | payer MEDICARE, BC, OTHER ==
[~2019-10-23] VITALS: Ht 157.5 cm; Wt 74.3 kg
[~2019-10-23 14:40] MED LIST changes: +PANT40TA29 PO; -PANT40TA3 PO
[2019-10-23 14:45] VITALS: BP 129/90
[2019-10-23] MEDS ORDERED: OMALIZUMAB SQ ONE (15:00)
[2019-10-23] MEDS ORDERED: OMALIZUMAB 150MG 1ML SYRINGE (XOLAIR) (J2357 PER 5MG) SQ ONE (15:00)
== END 2019-10-23 15:00 | disposition home or self-care (01) ==
LOC: M INFU 14:40
PROVIDERS: ATTEND Internal Medicine Pulmonary Disease
DX: J45.50 Severe persistent asthma, uncomplicated (principal)

== ENCOUNTER 2019-11-06 13:00 | Outpatient (CLI) | payer MEDICARE, BC, OTHER | END 2019-11-06 13:38 | disposition home or self-care (01) | LOC: M INFU 13:00 | PROVIDERS: ATTEND Internal Medicine Pulmonary Disease | DX: J45.50 Severe persistent asthma, uncomplicated (principal) ==

== ENCOUNTER 2019-11-20 13:06 | Outpatient (CLI) | payer MEDICARE, BC, OTHER | END 2019-11-20 13:40 | disposition home or self-care (01) | LOC: M INFU 13:06 | PROVIDERS: ATTEND Internal Medicine Pulmonary Disease | DX: J45.50 Severe persistent asthma, uncomplicated (principal) ==

== ENCOUNTER 2019-12-18 13:35 | Outpatient (CLI) | payer MEDICARE, BC, OTHER ==
[~2019-12-18] VITALS: Ht 157.5 cm; Wt 74.3 kg
[~2019-12-18 13:35] MED LIST changes: +OMALIZUMAB 150MG 1ML SYRINGE (XOLAIR) (J2357 PER 5MG) SQ ONE; +OMALIZUMAB SQ ONE
[2019-12-18 14:05] VITALS: BP 130/62
== END 2019-12-18 14:05 | disposition home or self-care (01) ==
LOC: M INFU 13:35
PROVIDERS: ATTEND Internal Medicine Pulmonary Disease
DX: J45.50 Severe persistent asthma, uncomplicated (principal); Z88.0 Allergy status to penicillin

== ENCOUNTER 2020-01-01 13:27 | Outpatient (CLI) | payer MEDICARE, BC, OTHER ==
[~2020-01-01] VITALS: Ht 157.5 cm; Wt 74.3 kg
[~2020-01-01 13:27] MED LIST changes: -OMALIZUMAB 150MG 1ML SYRINGE (XOLAIR) (J2357 PER 5MG) SQ ONE; -OMALIZUMAB SQ ONE
[2020-01-01 13:30] VITALS: BP 113/67
[2020-01-01] MEDS ORDERED: OMALIZUMAB SQ ONE (13:30)
[2020-01-01] MEDS ORDERED: OMALIZUMAB 150MG 1ML SYRINGE (XOLAIR) (J2357 PER 5MG) SQ ONE (13:30)
== END 2020-01-01 14:00 | disposition home or self-care (01) ==
LOC: M INFU 13:27
PROVIDERS: ATTEND Internal Medicine Pulmonary Disease
DX: J45.50 Severe persistent asthma, uncomplicated (principal); Z88.0 Allergy status to penicillin

== ENCOUNTER 2020-01-15 13:10 | Outpatient (CLI) | payer MEDICARE, BC, OTHER ==
[~2020-01-15] VITALS: Ht 157.5 cm; Wt 74.4 kg
[2020-01-15 13:15] VITALS: BP 136/73
[2020-01-15] MEDS: OMALIZUMAB SQ ONE (13:28)
[2020-01-15] MEDS: OMALIZUMAB 150MG 1ML SYRINGE (XOLAIR) (J2357 PER 5MG) SQ ONE (13:28)
== END 2020-01-15 13:45 | disposition home or self-care (01) ==
LOC: M INFU 13:10
PROVIDERS: ATTEND Internal Medicine Pulmonary Disease
DX: J45.50 Severe persistent asthma, uncomplicated (principal)

== ENCOUNTER 2020-01-29 13:10 | Outpatient (CLI) | payer MEDICARE, BC, OTHER ==
[~2020-01-29] VITALS: Ht 157.5 cm; Wt 74.4 kg
[~2020-01-29 13:10] MED LIST changes: +OMALIZUMAB 150MG 1ML SYRINGE (XOLAIR) (J2357 PER 5MG) SQ ONE; +OMALIZUMAB SQ ONE
[2020-01-29 13:17] VITALS: BP 133/76
[2020-01-29 13:45] VITALS: BP 128/70
== END 2020-01-29 13:45 | disposition home or self-care (01) ==
LOC: M INFU 13:10
PROVIDERS: ATTEND Internal Medicine Pulmonary Disease
DX: J45.50 Severe persistent asthma, uncomplicated (principal)

== ENCOUNTER 2020-02-11 12:56 | Outpatient (CLI) | payer MEDICARE, BC, OTHER ==
[~2020-02-11] VITALS: Ht 157.5 cm; Wt 74.4 kg
[~2020-02-11 12:56] MED LIST changes: -OMALIZUMAB 150MG 1ML SYRINGE (XOLAIR) (J2357 PER 5MG) SQ ONE; -OMALIZUMAB SQ ONE
[2020-02-11 13:00] VITALS: BP 126/78
[2020-02-11] MEDS ORDERED: OMALIZUMAB SQ ONE (13:00)
[2020-02-11] MEDS ORDERED: OMALIZUMAB 150MG 1ML SYRINGE (XOLAIR) (J2357 PER 5MG) SQ ONE (13:00)
== END 2020-02-11 13:20 | disposition home or self-care (01) ==
LOC: M INFU 12:56
PROVIDERS: ATTEND Internal Medicine Pulmonary Disease
DX: J45.50 Severe persistent asthma, uncomplicated (principal); Z88.0 Allergy status to penicillin

== ENCOUNTER 2020-02-25 13:03 | Outpatient (CLI) | payer MEDICARE, BC, OTHER ==
[~2020-02-25] VITALS: Ht 157.5 cm; Wt 74.3 kg
[~2020-02-25 13:03] MED LIST changes: +OMALIZUMAB 150MG 1ML SYRINGE (XOLAIR) (J2357 PER 5MG) SQ ONE; +OMALIZUMAB SQ ONE
[2020-02-25 13:16] VITALS: BP 135/96
== END 2020-02-25 13:20 | disposition home or self-care (01) ==
LOC: M INFU 13:03
PROVIDERS: ATTEND Internal Medicine Pulmonary Disease
DX: J45.50 Severe persistent asthma, uncomplicated (principal); Z88.0 Allergy status to penicillin

== ENCOUNTER 2020-03-10 13:09 | Outpatient (CLI) | payer MEDICARE, BC, OTHER ==
[~2020-03-10] VITALS: Ht 157.5 cm; Wt 74.3 kg
[2020-03-10 13:10] VITALS: BP 146/81
== END 2020-03-10 13:35 | disposition home or self-care (01) ==
LOC: M INFU 13:09
PROVIDERS: ATTEND Internal Medicine Pulmonary Disease
DX: J45.50 Severe persistent asthma, uncomplicated (principal); Z88.1 Allergy status to other antibiotic agents

== ENCOUNTER 2020-04-18 13:37 | Outpatient (CLI) | payer MEDICARE, BC, OTHER ==
[~2020-04-18] VITALS: Ht 157.5 cm; Wt 73.9 kg
[2020-04-18 13:45] VITALS: BP 138/75
== END 2020-04-18 14:02 | disposition home or self-care (01) ==
LOC: M INFU 13:37
PROVIDERS: ATTEND Internal Medicine Pulmonary Disease
DX: J45.50 Severe persistent asthma, uncomplicated (principal); Z88.0 Allergy status to penicillin

== ENCOUNTER 2020-05-05 13:03 | Outpatient (CLI) | payer MEDICARE, BC, OTHER ==
[~2020-05-05] VITALS: Ht 157.5 cm; Wt 73.9 kg
[2020-05-05 13:16] VITALS: BP 145/78
== END 2020-05-05 13:30 | disposition home or self-care (01) ==
LOC: M INFU 13:03
PROVIDERS: ATTEND Internal Medicine Pulmonary Disease
DX: J45.50 Severe persistent asthma, uncomplicated (principal); Z88.0 Allergy status to penicillin

== ENCOUNTER 2020-05-26 13:13 | Outpatient (CLI) | payer MEDICARE, BC, OTHER ==
[~2020-05-26] VITALS: Ht 157.5 cm; Wt 73.9 kg
[2020-05-26 13:24] VITALS: BP 138/79
== END 2020-05-26 13:30 | disposition home or self-care (01) ==
LOC: M INFU 13:13
PROVIDERS: ATTEND Internal Medicine Pulmonary Disease
DX: J45.50 Severe persistent asthma, uncomplicated (principal); Z88.0 Allergy status to penicillin

== ENCOUNTER 2020-06-23 13:01 | Outpatient (CLI) | payer MEDICARE, BC, OTHER ==
[~2020-06-23] VITALS: Ht 157.5 cm; Wt 73.9 kg
[2020-06-23 13:24] VITALS: BP 152/69
== END 2020-06-23 13:30 | disposition home or self-care (01) ==
LOC: M INFU 13:01
PROVIDERS: ATTEND Internal Medicine Pulmonary Disease
DX: J45.50 Severe persistent asthma, uncomplicated (principal); Z88.0 Allergy status to penicillin

== ENCOUNTER 2020-07-07 13:06 | Outpatient (CLI) | payer MEDICARE, BC, OTHER ==
[~2020-07-07] VITALS: Ht 157.5 cm; Wt 73.9 kg
[2020-07-07 13:18] VITALS: BP 190/84
[2020-07-07 13:35] VITALS: BP 168/73
== END 2020-07-07 13:36 | disposition home or self-care (01) ==
LOC: M INFU 13:06
PROVIDERS: ATTEND Internal Medicine Pulmonary Disease
DX: J45.50 Severe persistent asthma, uncomplicated (principal); Z88.0 Allergy status to penicillin

== ENCOUNTER 2020-07-21 13:13 | Outpatient (CLI) | payer MEDICARE, BC, OTHER ==
[~2020-07-21] VITALS: Ht 157.5 cm; Wt 73.9 kg
[2020-07-21 13:25] VITALS: BP 179/98
[2020-07-21 13:45] VITALS: BP 156/78
== END 2020-07-21 13:45 | disposition home or self-care (01) ==
LOC: M INFU 13:13
PROVIDERS: ATTEND Internal Medicine Pulmonary Disease
DX: J45.50 Severe persistent asthma, uncomplicated (principal); Z88.0 Allergy status to penicillin

== ENCOUNTER 2020-08-04 13:07 | Outpatient (CLI) | payer MEDICARE, BC, OTHER ==
[~2020-08-04] VITALS: Ht 157.5 cm; Wt 73.9 kg
[2020-08-04 13:34] VITALS: BP 147/75
== END 2020-08-04 14:00 | disposition home or self-care (01) ==
LOC: M INFU 13:07
PROVIDERS: ATTEND Internal Medicine Pulmonary Disease
DX: J45.50 Severe persistent asthma, uncomplicated (principal); Z88.0 Allergy status to penicillin

== ENCOUNTER 2020-08-19 11:28 | Outpatient (CLI) | payer MEDICARE, BC, OTHER ==
[~2020-08-19] VITALS: Ht 157.5 cm; Wt 74.0 kg
[~2020-08-19 11:28] MED LIST changes: -OMALIZUMAB 150MG 1ML SYRINGE (XOLAIR) (J2357 PER 5MG) SQ ONE; -OMALIZUMAB SQ ONE
[2020-08-19] MEDS ORDERED: OMALIZUMAB SQ ONE (11:30)
[2020-08-19] MEDS ORDERED: OMALIZUMAB 150MG 1ML SYRINGE (XOLAIR) (J2357 PER 5MG) SQ ONE (11:30)
[2020-08-19 11:50] VITALS: BP 162/77
== END 2020-08-19 11:50 | disposition home or self-care (01) ==
LOC: M INFU 11:28
PROVIDERS: ATTEND Internal Medicine Pulmonary Disease
DX: J45.50 Severe persistent asthma, uncomplicated (principal); Z88.0 Allergy status to penicillin

== ENCOUNTER 2020-09-02 13:32 | Outpatient (CLI) | payer MEDICARE, BC, OTHER ==
[~2020-09-02] VITALS: Ht 157.5 cm; Wt 73.9 kg
[~2020-09-02 13:32] MED LIST changes: +OMALIZUMAB 150MG 1ML SYRINGE (XOLAIR) (J2357 PER 5MG) SQ ONE; +OMALIZUMAB SQ ONE
[2020-09-02 13:55] VITALS: BP 175/79
== END 2020-09-02 14:05 | disposition home or self-care (01) ==
LOC: M INFU 13:32
PROVIDERS: ATTEND Internal Medicine Pulmonary Disease
DX: J45.50 Severe persistent asthma, uncomplicated (principal); Z88.0 Allergy status to penicillin

== ENCOUNTER 2020-09-16 12:58 | Outpatient (CLI) | payer MEDICARE, BC, OTHER ==
[~2020-09-16] VITALS: Ht 157.5 cm; Wt 73.9 kg
[~2020-09-16 12:58] MED LIST changes: -OMALIZUMAB 150MG 1ML SYRINGE (XOLAIR) (J2357 PER 5MG) SQ ONE; -OMALIZUMAB SQ ONE
[2020-09-16] MEDS ORDERED: OMALIZUMAB 150MG 1ML SYRINGE (XOLAIR) (J2357 PER 5MG) SQ ONE (13:00)
[2020-09-16] MEDS ORDERED: OMALIZUMAB SQ ONE (13:00)
[2020-09-16 13:05] VITALS: BP 142/70
== END 2020-09-16 13:25 | disposition home or self-care (01) ==
LOC: M INFU 12:58
PROVIDERS: ATTEND Internal Medicine Pulmonary Disease
DX: J45.50 Severe persistent asthma, uncomplicated (principal); Z88.0 Allergy status to penicillin

== ENCOUNTER 2020-09-30 14:56 | Outpatient (CLI) | payer MEDICARE, BC, OTHER ==
[2020-09-30] MEDS ORDERED: OMALIZUMAB 150MG 1ML SYRINGE (XOLAIR) (J2357 PER 5MG) SQ ONE (15:00)
[2020-09-30] MEDS ORDERED: OMALIZUMAB SQ ONE (15:00)
[2020-09-30 15:13] VITALS: BP 154/70
== END 2020-09-30 15:15 | disposition home or self-care (01) ==
LOC: M INFU 14:56
PROVIDERS: ATTEND Internal Medicine Pulmonary Disease
DX: J45.50 Severe persistent asthma, uncomplicated (principal)

== ENCOUNTER 2020-10-14 13:03 | Outpatient (CLI) | payer MEDICARE, BC, OTHER ==
[~2020-10-14] VITALS: Ht 157.5 cm; Wt 77.8 kg
[~2020-10-14 13:03] MED LIST changes: +OMALIZUMAB 150MG 1ML SYRINGE (XOLAIR) (J2357 PER 5MG) SQ ONE; +OMALIZUMAB SQ ONE
[2020-10-14 13:45] VITALS: BP 143/78
== END 2020-10-14 13:45 ==
LOC: M INFU 13:03
PROVIDERS: ATTEND Internal Medicine Pulmonary Disease
DX: J45.50 Severe persistent asthma, uncomplicated (principal); Z88.0 Allergy status to penicillin

== ENCOUNTER 2020-10-28 13:55 | Outpatient (CLI) | payer MEDICARE, BC, OTHER | END 2020-10-28 14:25 | disposition home or self-care (01) | LOC: M INFU 13:55 | PROVIDERS: ATTEND Internal Medicine Pulmonary Disease | DX: J45.50 Severe persistent asthma, uncomplicated (principal); Z88.0 Allergy status to penicillin ==

== ENCOUNTER 2020-11-16 13:14 | Outpatient (CLI) | payer MEDICARE, BC, OTHER ==
[~2020-11-16] VITALS: Ht 157.5 cm; Wt 77.8 kg
[2020-11-16 13:28] VITALS: BP 134/78
== END 2020-11-16 13:25 | disposition home or self-care (01) ==
LOC: M INFU 13:14
PROVIDERS: ATTEND Internal Medicine Pulmonary Disease
DX: J45.50 Severe persistent asthma, uncomplicated (principal); Z88.0 Allergy status to penicillin

== ENCOUNTER 2020-11-30 13:14 | Outpatient (CLI) | payer MEDICARE, BC, OTHER ==
[2020-11-30 13:20] VITALS: BP 138/96
[2020-11-30 13:50] VITALS: BP 122/68
== END 2020-11-30 13:50 | disposition home or self-care (01) ==
LOC: M INFU 13:14
PROVIDERS: ATTEND Internal Medicine Pulmonary Disease
DX: J45.50 Severe persistent asthma, uncomplicated (principal); Z88.0 Allergy status to penicillin

== ENCOUNTER 2020-12-14 13:10 | Outpatient (CLI) | payer MEDICARE, BC, OTHER ==
[~2020-12-14] VITALS: Ht 157.5 cm; Wt 77.8 kg
[~2020-12-14 13:10] MED LIST changes: -OMALIZUMAB 150MG 1ML SYRINGE (XOLAIR) (J2357 PER 5MG) SQ ONE; -OMALIZUMAB SQ ONE
[2020-12-14 13:20] VITALS: BP 137/81
[2020-12-14] MEDS ORDERED: OMALIZUMAB 150MG 1ML SYRINGE (XOLAIR) (J2357 PER 5MG) SQ ONE (13:30)
[2020-12-14] MEDS ORDERED: OMALIZUMAB SQ ONE (13:30)
== END 2020-12-14 13:55 | disposition home or self-care (01) ==
LOC: M INFU 13:10
PROVIDERS: ATTEND Internal Medicine Pulmonary Disease
DX: J45.50 Severe persistent asthma, uncomplicated (principal); Z88.0 Allergy status to penicillin

== ENCOUNTER 2020-12-28 13:09 | Outpatient (CLI) | payer MEDICARE, BC, OTHER ==
[~2020-12-28] VITALS: Ht 157.5 cm; Wt 74.8 kg
[~2020-12-28 13:09] MED LIST changes: +OMALIZUMAB 150MG 1ML SYRINGE (XOLAIR) (J2357 PER 5MG) SQ ONE; +OMALIZUMAB SQ ONE
[2020-12-28 13:15] VITALS: BP 160/79
== END 2020-12-28 13:30 | disposition home or self-care (01) ==
LOC: M INFU 13:09
PROVIDERS: ATTEND Internal Medicine Pulmonary Disease
DX: J45.50 Severe persistent asthma, uncomplicated (principal); Z88.0 Allergy status to penicillin

== ENCOUNTER 2021-01-11 13:15 | Outpatient (CLI) | payer MEDICARE, BC, OTHER ==
[~2021-01-11] VITALS: Ht 157.5 cm; Wt 75.0 kg
[2021-01-11 13:20] VITALS: BP 143/68
[2021-01-11 13:50] VITALS: BP 118/75
== END 2021-01-11 13:50 | disposition home or self-care (01) ==
LOC: M INFU 13:15
PROVIDERS: ATTEND Internal Medicine Pulmonary Disease
DX: J45.50 Severe persistent asthma, uncomplicated (principal); Z88.0 Allergy status to penicillin

== ENCOUNTER 2021-02-01 13:11 | Outpatient (CLI) | payer MEDICARE, BC, OTHER ==
[~2021-02-01] VITALS: Ht 157.5 cm; Wt 75.0 kg
[2021-02-01 12:15] VITALS: BP 146/81
[~2021-02-01 13:11] MED LIST changes: -OMALIZUMAB 150MG 1ML SYRINGE (XOLAIR) (J2357 PER 5MG) SQ ONE; +OMALIZUMAB 150MG 1ML SYRINGE (XOLAIR) SQ ONE; +OMALIZUMAB 75 MG SQ ONE; -OMALIZUMAB SQ ONE
[2021-02-01 13:35] VITALS: BP 136/76
== END 2021-02-01 13:35 | disposition home or self-care (01) ==
LOC: M INFU 13:11
PROVIDERS: ATTEND Internal Medicine Pulmonary Disease
DX: J45.50 Severe persistent asthma, uncomplicated (principal); Z88.0 Allergy status to penicillin

== ENCOUNTER 2021-02-15 13:11 | Outpatient (CLI) | payer MEDICARE, BC, OTHER ==
[~2021-02-15] VITALS: Ht 157.5 cm; Wt 74.8 kg
[2021-02-15 13:15] VITALS: BP 145/84
== END 2021-02-15 13:45 | disposition home or self-care (01) ==
LOC: M INFU 13:11
PROVIDERS: ATTEND Internal Medicine Pulmonary Disease
DX: J45.50 Severe persistent asthma, uncomplicated (principal); Z88.0 Allergy status to penicillin

== ENCOUNTER 2021-03-01 13:34 | Outpatient (CLI) | payer MEDICARE, BC, OTHER ==
[2021-03-01 13:25] VITALS: BP 139/81
[~2021-03-01 13:34] MED LIST changes: +ATOR1TAB19 PO; +LOSA50TA28 PO; -LOSA50TA88 PO
== END 2021-03-01 14:00 | disposition home or self-care (01) ==
LOC: M INFU 13:34
PROVIDERS: ATTEND Internal Medicine Pulmonary Disease
DX: J45.50 Severe persistent asthma, uncomplicated (principal); Z88.0 Allergy status to penicillin

== ENCOUNTER → 2021-03-04 | Outpatient (CLI) | payer MEDICARE, BC, OTHER ==
[~2021-03-04] MED LIST changes: -LOSA50TA28 PO; +LOSA50TA88 PO; -OMALIZUMAB 150MG 1ML SYRINGE (XOLAIR) SQ ONE; -OMALIZUMAB 75 MG SQ ONE
== END ==
LOC: M LABSMTC 11:42
PROVIDERS: ATTEND Anesthesiology
DX: Z11.52 Encounter for screening for COVID-19 (principal); Z20.828 Contact with and (suspected) exposure to other viral communicable diseases

== ENCOUNTER 2021-03-07 09:03 | Day surgery (SDC) | payer MEDICARE, BC, OTHER ==
[~2021-03-07] VITALS: Ht 157.5 cm; Wt 74.8 kg
[~2021-03-07 09:03] MED LIST changes: +LOSA50TA28 PO; -LOSA50TA88 PO; +NS 1,000 ML IV ONE
[2021-03-07] MEDS ORDERED: LIDOCAINE 2% 100MG/5ML SDV (FOR ANES.) As Ordered ONE (09:47)
[2021-03-07] MEDS ORDERED: propofoL 200 MG/20 ML VIAL As Ordered ONE ×2 (09:47→10:28)
[2021-03-07 11:00] VITALS: BP 172/81
== END 2021-03-07 11:13 | disposition home or self-care (01) ==
LOC: M OPP 09:03
PROVIDERS: ATTEND Surgery
DX: Z12.11 Encounter for screening for malignant neoplasm of colon (principal); Z86.010 Personal history of colon polyps; K57.30 Diverticulosis of large intestine without perforation or abscess without bleeding; K21.9 Gastro-esophageal reflux disease without esophagitis; K22.89 Other specified disease of esophagus; K44.9 Diaphragmatic hernia without obstruction or gangrene; K29.70 Gastritis, unspecified, without bleeding; Z79.899 Other long term (current) drug therapy; Z88.2 Allergy status to sulfonamides
CPT/HCPCS: 43239; 88305; G0105

== ENCOUNTER 2021-03-15 13:31 | Outpatient (CLI) | payer MEDICARE, BC, OTHER ==
[~2021-03-15] VITALS: Ht 157.5 cm; Wt 75.1 kg
[~2021-03-15 13:31] MED LIST changes: -LOSA50TA28 PO; +LOSA50TA88 PO; -NS 1,000 ML IV ONE; +OMALIZUMAB 150MG 1ML SYRINGE (XOLAIR) SQ ONE; +OMALIZUMAB 75 MG SQ ONE
[2021-03-15 13:55] VITALS: BP_SYST 165
== END 2021-03-15 13:55 | disposition home or self-care (01) ==
LOC: M INFU 13:31
PROVIDERS: ATTEND Internal Medicine Pulmonary Disease
DX: J45.50 Severe persistent asthma, uncomplicated (principal); Z88.0 Allergy status to penicillin

== ENCOUNTER 2021-03-29 13:31 | Outpatient (CLI) | payer MEDICARE, BC, OTHER ==
[~2021-03-29] VITALS: Ht 157.5 cm; Wt 75.0 kg
[2021-03-29 14:05] VITALS: BP 137/81
== END 2021-03-29 14:05 | disposition home or self-care (01) ==
LOC: M INFU 13:31
PROVIDERS: ATTEND Internal Medicine Pulmonary Disease
DX: J45.50 Severe persistent asthma, uncomplicated (principal); Z88.0 Allergy status to penicillin

== ENCOUNTER 2021-04-21 13:16 | Outpatient (CLI) | payer MEDICARE, BC, OTHER ==
[~2021-04-21] VITALS: Ht 157.5 cm; Wt 74.0 kg
[~2021-04-21 13:16] MED LIST changes: +LOSA50TA28 PO; -LOSA50TA88 PO
[2021-04-21 13:20] VITALS: BP 164/86
[2021-04-21 13:40] VITALS: BP 154/76
== END 2021-04-21 13:40 | disposition home or self-care (01) ==
LOC: M INFU 13:16
PROVIDERS: ATTEND Internal Medicine Pulmonary Disease
DX: J45.50 Severe persistent asthma, uncomplicated (principal); Z88.0 Allergy status to penicillin

== ENCOUNTER 2021-05-03 13:19 | Outpatient (CLI) | payer MEDICARE, BC, OTHER ==
[~2021-05-03] VITALS: Ht 188 cm; Wt 74.5 kg
[2021-05-03 13:45] VITALS: BP 144/76
== END 2021-05-03 13:45 | disposition home or self-care (01) ==
LOC: M INFU 13:19
PROVIDERS: ATTEND Internal Medicine Pulmonary Disease
DX: J45.50 Severe persistent asthma, uncomplicated (principal); Z88.0 Allergy status to penicillin

== ENCOUNTER 2021-05-17 13:30 | Outpatient (CLI) | payer MEDICARE, BC, OTHER ==
[2021-05-17 13:35] VITALS: BP 153/92
== END 2021-05-17 13:50 | disposition home or self-care (01) ==
LOC: M INFU 13:30
PROVIDERS: ATTEND Internal Medicine Pulmonary Disease
DX: J45.50 Severe persistent asthma, uncomplicated (principal); Z88.0 Allergy status to penicillin

== ENCOUNTER 2021-06-14 13:18 | Outpatient (CLI) | payer MEDICARE, BC, OTHER ==
[~2021-06-14] VITALS: Ht 157.5 cm; Wt 74.5 kg
== END 2021-06-14 13:35 | disposition home or self-care (01) ==
LOC: M INFU 13:18
PROVIDERS: ATTEND Internal Medicine Pulmonary Disease
DX: J45.50 Severe persistent asthma, uncomplicated (principal); Z88.0 Allergy status to penicillin

== ENCOUNTER 2021-06-28 13:09 | Outpatient (CLI) | payer MEDICARE, BC, OTHER ==
[~2021-06-28] VITALS: Ht 157.5 cm; Wt 74.4 kg
[2021-06-28 13:25] VITALS: BP 178/91
== END 2021-06-28 13:30 | disposition home or self-care (01) ==
LOC: M INFU 13:09
PROVIDERS: ATTEND Internal Medicine Pulmonary Disease
DX: J45.50 Severe persistent asthma, uncomplicated (principal); Z88.0 Allergy status to penicillin

== ENCOUNTER 2021-07-12 13:05 | Outpatient (CLI) | payer MEDICARE, BC, OTHER ==
[~2021-07-12] VITALS: Ht 157.5 cm; Wt 74.0 kg
[2021-07-12 13:33] VITALS: BP 134/92
== END 2021-07-12 13:30 | disposition home or self-care (01) ==
LOC: M INFU 13:05
PROVIDERS: ATTEND Internal Medicine Pulmonary Disease
DX: J45.50 Severe persistent asthma, uncomplicated (principal); Z88.0 Allergy status to penicillin

== ENCOUNTER 2021-08-09 13:06 | Outpatient (CLI) | payer MEDICARE, BC, OTHER ==
[~2021-08-09] VITALS: Ht 157.5 cm; Wt 74.4 kg
[2021-08-09 13:15] VITALS: BP 119/78
== END 2021-08-09 13:30 | disposition home or self-care (01) ==
LOC: M INFU 13:06
PROVIDERS: ATTEND Internal Medicine Pulmonary Disease
DX: J45.50 Severe persistent asthma, uncomplicated (principal); Z88.0 Allergy status to penicillin

== ENCOUNTER 2021-08-23 13:03 | Outpatient (CLI) | payer MEDICARE, BC, OTHER ==
[~2021-08-23] VITALS: Ht 157.5 cm; Wt 74.4 kg
[2021-08-23 13:30] VITALS: BP 161/75
== END 2021-08-23 13:30 | disposition home or self-care (01) ==
LOC: M INFU 13:03
PROVIDERS: ATTEND Internal Medicine Pulmonary Disease
DX: J45.50 Severe persistent asthma, uncomplicated (principal); Z88.0 Allergy status to penicillin

== ENCOUNTER 2021-09-06 13:24 | Outpatient (CLI) | payer MEDICARE, BC, OTHER ==
[2021-09-06 13:58] VITALS: BP 152/77
== END 2021-09-06 13:50 | disposition home or self-care (01) ==
LOC: M INFU 13:24
PROVIDERS: ATTEND Internal Medicine Pulmonary Disease
DX: J45.50 Severe persistent asthma, uncomplicated (principal); Z88.0 Allergy status to penicillin

== ENCOUNTER 2021-09-20 13:06 | Outpatient (CLI) | payer MEDICARE, BC, OTHER ==
[~2021-09-20] VITALS: Ht 157.5 cm; Wt 74.5 kg
[2021-09-20 13:14] VITALS: BP 172/84
== END 2021-09-20 13:30 | disposition home or self-care (01) ==
LOC: M INFU 13:06
PROVIDERS: ATTEND Internal Medicine Pulmonary Disease
DX: J45.50 Severe persistent asthma, uncomplicated (principal)

== ENCOUNTER 2021-10-04 13:20 | Outpatient (CLI) | payer MEDICARE, BC, OTHER ==
[~2021-10-04] VITALS: Ht 157.5 cm; Wt 74.4 kg
[2021-10-04 13:40] VITALS: BP 156/78
== END 2021-10-04 13:40 | disposition home or self-care (01) ==
LOC: M INFU 13:20
PROVIDERS: ATTEND Internal Medicine Pulmonary Disease
DX: J45.50 Severe persistent asthma, uncomplicated (principal); Z88.0 Allergy status to penicillin

== ENCOUNTER 2021-10-18 12:00 | Outpatient (CLI) | payer MEDICARE, BC, OTHER ==
[~2021-10-18] VITALS: Ht 160 cm; Wt 75.0 kg
[~2021-10-18 12:00] MED LIST changes: +OMALIZUMAB 150MG 1ML SYRINGE (XOLAIR) SC ONE; -OMALIZUMAB 150MG 1ML SYRINGE (XOLAIR) SQ ONE; +OMALIZUMAB 75 MG SC ONE; -OMALIZUMAB 75 MG SQ ONE
[2021-10-18 12:30] VITALS: BP 161/73
== END 2021-10-18 12:30 | disposition home or self-care (01) ==
LOC: M INFU 12:00
PROVIDERS: ATTEND Internal Medicine Pulmonary Disease
DX: J45.50 Severe persistent asthma, uncomplicated (principal); Z88.0 Allergy status to penicillin

== ENCOUNTER 2021-11-01 13:30 | Outpatient (CLI) | payer MEDICARE, BC, OTHER ==
[~2021-11-01] VITALS: Ht 160 cm; Wt 75.0 kg
[2021-11-01 13:30] VITALS: BP 167/83
[~2021-11-01 13:30] MED LIST changes: -OMALIZUMAB 150MG 1ML SYRINGE (XOLAIR) SC ONE; +OMALIZUMAB 150MG 1ML SYRINGE (XOLAIR) SQ ONE; -OMALIZUMAB 75 MG SC ONE; +OMALIZUMAB 75 MG SQ ONE
== END 2021-11-01 13:55 | disposition home or self-care (01) ==
LOC: M INFU 13:30
PROVIDERS: ATTEND Internal Medicine Pulmonary Disease
DX: J45.50 Severe persistent asthma, uncomplicated (principal); Z88.0 Allergy status to penicillin

== ENCOUNTER 2021-11-15 12:55 | Outpatient (CLI) | payer MEDICARE, BC, OTHER ==
[~2021-11-15] VITALS: Ht 160 cm; Wt 75.0 kg
[~2021-11-15 12:55] MED LIST changes: -OMALIZUMAB 150MG 1ML SYRINGE (XOLAIR) SQ ONE; -OMALIZUMAB 75 MG SQ ONE
[2021-11-15] MEDS ORDERED: OMALIZUMAB 75 MG SQ ONE (13:00)
[2021-11-15] MEDS ORDERED: OMALIZUMAB 150MG 1ML SYRINGE (XOLAIR) SQ ONE (13:00)
[2021-11-15 13:10] VITALS: BP 173/83
== END 2021-11-15 13:10 | disposition home or self-care (01) ==
LOC: M INFU 12:55
PROVIDERS: ATTEND Internal Medicine Pulmonary Disease
DX: J45.50 Severe persistent asthma, uncomplicated (principal); Z88.0 Allergy status to penicillin

== ENCOUNTER → 2021-11-29 | Outpatient (CLI) | payer MEDICARE, BC, OTHER ==
[~2021-11-29] VITALS: Ht 157.5 cm; Wt 75.0 kg
[~2021-11-29] MED LIST changes: +OMALIZUMAB 150MG 1ML SYRINGE (XOLAIR) SC ONE; +OMALIZUMAB 75 MG SC ONE
[2021-11-29 13:00] VITALS: BP 129/72
== END ==
LOC: M INFU 13:05
PROVIDERS: ATTEND Internal Medicine Pulmonary Disease
DX: J45.50 Severe persistent asthma, uncomplicated (principal); Z88.0 Allergy status to penicillin

== ENCOUNTER 2021-12-13 13:10 | Outpatient (CLI) | payer MEDICARE, BC, OTHER ==
[~2021-12-13] VITALS: Ht 157.5 cm; Wt 75.0 kg
[2021-12-13 13:10] VITALS: BP 167/83
[~2021-12-13 13:10] MED LIST changes: -OMALIZUMAB 150MG 1ML SYRINGE (XOLAIR) SC ONE; +OMALIZUMAB 150MG 1ML SYRINGE (XOLAIR) SQ ONE; -OMALIZUMAB 75 MG SC ONE; +OMALIZUMAB 75 MG SQ ONE
== END 2021-12-13 13:25 | disposition home or self-care (01) ==
LOC: M INFU 13:10
PROVIDERS: ATTEND Internal Medicine Pulmonary Disease
DX: J45.50 Severe persistent asthma, uncomplicated (principal); Z88.0 Allergy status to penicillin

== ENCOUNTER 2022-01-03 13:10 | Outpatient (CLI) | payer MEDICARE, BC, OTHER ==
[~2022-01-03] VITALS: Ht 160 cm; Wt 75.0 kg
[2022-01-03 13:15] VITALS: BP 178/96
== END 2022-01-03 13:25 | disposition home or self-care (01) ==
LOC: M INFU 13:10
PROVIDERS: ATTEND Internal Medicine Pulmonary Disease
DX: J45.50 Severe persistent asthma, uncomplicated (principal); Z88.0 Allergy status to penicillin

== ENCOUNTER 2022-01-17 13:00 | Outpatient (CLI) | payer MEDICARE, BC, OTHER ==
[~2022-01-17] VITALS: Ht 160 cm; Wt 75.0 kg
[2022-01-17 13:15] VITALS: BP 147/85
== END 2022-01-17 13:20 | disposition home or self-care (01) ==
LOC: M INFU 13:00
PROVIDERS: ATTEND Internal Medicine Pulmonary Disease
DX: J45.50 Severe persistent asthma, uncomplicated (principal); Z88.0 Allergy status to penicillin

== ENCOUNTER 2022-02-07 13:00 | Outpatient (CLI) | payer MEDICARE, BC, OTHER ==
[~2022-02-07] VITALS: Ht 160 cm; Wt 75.0 kg
[2022-02-07 13:00] VITALS: BP 178/88
== END 2022-02-07 13:15 | disposition home or self-care (01) ==
LOC: M INFU 13:00
PROVIDERS: ATTEND Internal Medicine Pulmonary Disease
DX: J45.50 Severe persistent asthma, uncomplicated (principal); Z88.0 Allergy status to penicillin

== ENCOUNTER 2022-02-22 13:05 | Outpatient (CLI) | payer MEDICARE, BC, OTHER ==
[~2022-02-22] VITALS: Ht 160 cm; Wt 75.0 kg
[2022-02-22 13:12] VITALS: BP 137/87
== END 2022-02-22 13:58 | disposition home or self-care (01) ==
LOC: M INFU 13:05
PROVIDERS: ATTEND Internal Medicine Pulmonary Disease
DX: J45.50 Severe persistent asthma, uncomplicated (principal); Z88.0 Allergy status to penicillin

== ENCOUNTER 2022-03-14 13:30 | Outpatient (CLI) | payer MEDICARE, BC, OTHER ==
[~2022-03-14] VITALS: Ht 160 cm; Wt 75.0 kg
[2022-03-14 13:30] VITALS: BP 187/84
[2022-03-14 13:55] VITALS: BP 168/84
== END 2022-03-14 13:55 | disposition home or self-care (01) ==
LOC: M INFU 13:30
PROVIDERS: ATTEND Internal Medicine Pulmonary Disease
DX: J45.50 Severe persistent asthma, uncomplicated (principal); Z88.0 Allergy status to penicillin

== ENCOUNTER → 2022-03-28 | Outpatient (CLI) | payer MEDICARE, BC, OTHER ==
[~2022-03-28] VITALS: Ht 160 cm; Wt 75.0 kg
[2022-03-28 13:10] VITALS: BP 165/81
== END ==
LOC: M INFU 13:10
PROVIDERS: ATTEND Internal Medicine Pulmonary Disease
DX: J45.50 Severe persistent asthma, uncomplicated (principal); Z88.0 Allergy status to penicillin

== ENCOUNTER 2022-04-11 14:00 | Outpatient (CLI) | payer MEDICARE, BC, OTHER ==
[2022-04-11 14:00] VITALS: BP 188/88
== END 2022-04-11 14:15 | disposition home or self-care (01) ==
LOC: M INFU 14:00
PROVIDERS: ATTEND Internal Medicine Pulmonary Disease
DX: J45.50 Severe persistent asthma, uncomplicated (principal); Z88.0 Allergy status to penicillin

== ENCOUNTER 2022-04-25 13:15 | Outpatient (CLI) | payer MEDICARE, BC, OTHER ==
[2022-04-25 13:18] VITALS: BP 180/86
== END 2022-04-25 13:40 | disposition home or self-care (01) ==
LOC: M INFU 13:15
PROVIDERS: ATTEND Internal Medicine Pulmonary Disease
DX: J45.50 Severe persistent asthma, uncomplicated (principal); Z88.0 Allergy status to penicillin

== ENCOUNTER 2022-05-24 11:30 | Outpatient (CLI) | payer MEDICARE, BC, OTHER ==
[~2022-05-24] VITALS: Ht 160 cm; Wt 75.0 kg
[2022-05-24 10:45] VITALS: BP 144/80
[2022-05-24] MEDS ORDERED: OMALIZUMAB 150MG 1ML SYRINGE (XOLAIR) SQ ONE (11:45)
[2022-05-24] MEDS ORDERED: OMALIZUMAB 75 MG SQ ONE (11:45)
== END 2022-05-24 12:05 | disposition home or self-care (01) ==
LOC: M INFU 11:30
PROVIDERS: ATTEND Internal Medicine Pulmonary Disease
DX: J45.50 Severe persistent asthma, uncomplicated (principal); Z88.0 Allergy status to penicillin

== ENCOUNTER 2022-06-06 14:05 | Outpatient (CLI) | payer MEDICARE, BC, OTHER ==
[~2022-06-06] VITALS: Ht 160 cm; Wt 75.0 kg
[~2022-06-06 14:05] MED LIST changes: +MONT-5 PO; -SING10TA32 PO
[2022-06-06 15:15] VITALS: BP 150/76
== END 2022-06-06 14:20 | disposition home or self-care (01) ==
LOC: M INFU 14:05
PROVIDERS: ATTEND Internal Medicine Pulmonary Disease
DX: J45.50 Severe persistent asthma, uncomplicated (principal); Z88.0 Allergy status to penicillin

== ENCOUNTER 2022-06-20 13:10 | Outpatient (CLI) | payer MEDICARE, BC, OTHER ==
[~2022-06-20] VITALS: Ht 160 cm; Wt 75.0 kg
[2022-06-20 13:20] VITALS: BP 157/82
== END 2022-06-20 13:20 | disposition home or self-care (01) ==
LOC: M INFU 13:10
PROVIDERS: ATTEND Internal Medicine Pulmonary Disease
DX: J45.50 Severe persistent asthma, uncomplicated (principal); Z88.0 Allergy status to penicillin

== ENCOUNTER 2022-07-04 13:45 | Outpatient (CLI) | payer MEDICARE, BC, OTHER ==
[~2022-07-04] VITALS: Ht 160 cm; Wt 75.0 kg
[2022-07-04 13:45] VITALS: BP 132/70
[2022-07-04 14:15] VITALS: BP 126/68
== END 2022-07-04 14:15 | disposition home or self-care (01) ==
LOC: M INFU 13:45
PROVIDERS: ATTEND Internal Medicine Pulmonary Disease
DX: J45.50 Severe persistent asthma, uncomplicated (principal); Z88.0 Allergy status to penicillin

== ENCOUNTER 2022-07-18 13:44 | Outpatient (CLI) | payer MEDICARE, BC, OTHER ==
[~2022-07-18] VITALS: Ht 160 cm; Wt 70.5 kg
[2022-07-18 14:00] VITALS: BP 176/84
== END 2022-07-18 14:00 | disposition home or self-care (01) ==
LOC: M INFU 13:44
PROVIDERS: ATTEND Internal Medicine Pulmonary Disease
DX: J45.50 Severe persistent asthma, uncomplicated (principal); Z88.0 Allergy status to penicillin

== ENCOUNTER 2022-08-15 13:30 | Outpatient (CLI) | payer MEDICARE, BC, OTHER ==
[~2022-08-15] VITALS: Ht 160 cm; Wt 70.0 kg
[2022-08-15 13:40] VITALS: BP 173/77
== END 2022-08-15 13:40 | disposition home or self-care (01) ==
LOC: M INFU 13:30
PROVIDERS: ATTEND Internal Medicine Pulmonary Disease
DX: J45.50 Severe persistent asthma, uncomplicated (principal); Z88.0 Allergy status to penicillin

== ENCOUNTER 2022-08-29 13:40 | Outpatient (CLI) | payer MEDICARE, BC, OTHER ==
[~2022-08-29] VITALS: Ht 160 cm; Wt 70.0 kg
[2022-08-29 13:40] VITALS: BP 146/68
== END 2022-08-29 13:50 | disposition home or self-care (01) ==
LOC: M INFU 13:40
PROVIDERS: ATTEND Internal Medicine Pulmonary Disease
DX: J45.50 Severe persistent asthma, uncomplicated (principal); Z88.0 Allergy status to penicillin

== ENCOUNTER 2022-09-19 14:43 | Outpatient (CLI) | payer MEDICARE, BC, OTHER ==
[~2022-09-19] VITALS: Ht 160 cm; Wt 70.0 kg
[2022-09-19 15:00] VITALS: BP 174/81; O2SAT 97
== END 2022-09-19 15:00 | disposition home or self-care (01) ==
LOC: M INFU 14:43
PROVIDERS: ATTEND Internal Medicine Pulmonary Disease
DX: J45.50 Severe persistent asthma, uncomplicated (principal); Z88.0 Allergy status to penicillin

== ENCOUNTER 2022-10-03 13:57 | Outpatient (CLI) | payer MEDICARE, BC, OTHER ==
[~2022-10-03] VITALS: Ht 160 cm; Wt 70.0 kg
[2022-10-03 13:39] VITALS: BP 190/95; O2SAT 97
== END 2022-10-03 14:13 ==
LOC: M INFU 13:57
PROVIDERS: ATTEND Internal Medicine Pulmonary Disease
DX: J45.50 Severe persistent asthma, uncomplicated (principal); Z88.0 Allergy status to penicillin

== ENCOUNTER 2022-10-17 13:35 | Outpatient (CLI) | payer MEDICARE, BC, OTHER ==
[~2022-10-17] VITALS: Ht 157.5 cm; Wt 75.0 kg
[2022-10-17 13:35] VITALS: BP 195/93; O2SAT 96
== END 2022-10-17 14:35 ==
LOC: M INFU 13:35
PROVIDERS: ATTEND Internal Medicine Pulmonary Disease
DX: J45.50 Severe persistent asthma, uncomplicated (principal); Z88.0 Allergy status to penicillin

== ENCOUNTER 2022-10-31 13:50 | Outpatient (CLI) | payer MEDICARE, BC, OTHER ==
[~2022-10-31] VITALS: Ht 157.5 cm; Wt 75.0 kg
[2022-10-31 13:50] VITALS: BP 181/83; O2SAT 97
[~2022-10-31 13:50] MED LIST changes: +CURRENT HEIGHT AND WEIGHT NEEDED ON PATIENT XX SCH
[2022-10-31] MEDS ORDERED: OMALIZUMAB 75 MG SQ ONE (14:00)
[2022-10-31] MEDS ORDERED: OMALIZUMAB 150MG 1ML SYRINGE (XOLAIR) SQ ONE (14:00)
[2022-10-31 14:10] VITALS: BP 168/85; O2SAT 96
== END 2022-10-31 14:10 ==
LOC: M INFU 13:50
PROVIDERS: ATTEND Internal Medicine Pulmonary Disease
DX: J45.50 Severe persistent asthma, uncomplicated (principal); Z88.0 Allergy status to penicillin

== ENCOUNTER 2022-11-14 13:30 | Outpatient (CLI) | payer MEDICARE, BC, OTHER ==
[~2022-11-14 13:30] MED LIST changes: -CURRENT HEIGHT AND WEIGHT NEEDED ON PATIENT XX SCH; -OMALIZUMAB 150MG 1ML SYRINGE (XOLAIR) SQ ONE; -OMALIZUMAB 75 MG SQ ONE
[2022-11-14 13:41] VITALS: BP 133/78; O2SAT 96
[2022-11-14] MEDS ORDERED: OMALIZUMAB 75 MG SQ ONE (14:00)
[2022-11-14] MEDS ORDERED: OMALIZUMAB 150MG 1ML SYRINGE (XOLAIR) SQ ONE (14:00)
== END 2022-11-14 14:15 | disposition home or self-care (01) ==
LOC: M INFU 13:30
PROVIDERS: ATTEND Internal Medicine Pulmonary Disease
DX: J45.50 Severe persistent asthma, uncomplicated (principal); Z88.0 Allergy status to penicillin

== ENCOUNTER 2022-11-28 14:35 | Outpatient (CLI) | payer MEDICARE, BC, OTHER ==
[~2022-11-28] VITALS: Ht 157.5 cm; Wt 76.3 kg
[~2022-11-28 14:35] MED LIST changes: +OMALIZUMAB 150MG 1ML SYRINGE (XOLAIR) SQ ONE; +OMALIZUMAB 75 MG SQ ONE
[2022-11-28 14:49] VITALS: BP 160/78; O2SAT 96
== END 2022-11-28 15:20 ==
LOC: M INFU 14:35
PROVIDERS: ATTEND Internal Medicine Pulmonary Disease
DX: J45.50 Severe persistent asthma, uncomplicated (principal); Z88.0 Allergy status to penicillin

== ENCOUNTER 2022-12-26 13:30 | Outpatient (CLI) | payer MEDICARE, BC, OTHER ==
[~2022-12-26] VITALS: Ht 157.5 cm; Wt 76.3 kg
[2022-12-26 13:45] VITALS: BP_SYST 134; BP_SYST 164; BP_DIAS 78; BP_DIAS 88; O2SAT 95; O2SAT 96
== END 2022-12-26 13:45 ==
LOC: M INFU 13:30
PROVIDERS: ATTEND Internal Medicine Pulmonary Disease
DX: J45.50 Severe persistent asthma, uncomplicated (principal); Z88.0 Allergy status to penicillin

== ENCOUNTER 2023-01-09 13:26 | Outpatient (CLI) | payer MEDICARE, BC, OTHER ==
[~2023-01-09] VITALS: Ht 157.5 cm; Wt 75.0 kg
[~2023-01-09 13:26] MED LIST changes: -OMALIZUMAB 150MG 1ML SYRINGE (XOLAIR) SQ ONE; -OMALIZUMAB 75 MG SQ ONE
[2023-01-09 13:30] VITALS: BP 191/98; O2SAT 95
[2023-01-09] MEDS ORDERED: OMALIZUMAB 150MG 1ML SYRINGE (XOLAIR) SQ ONE (13:30)
[2023-01-09] MEDS ORDERED: OMALIZUMAB 75 MG SQ ONE (13:30)
[2023-01-09 14:00] VITALS: BP 168/88; O2SAT 95
== END 2023-01-09 14:00 ==
LOC: M INFU 13:26
PROVIDERS: ATTEND Internal Medicine Pulmonary Disease
DX: J45.50 Severe persistent asthma, uncomplicated (principal); Z88.0 Allergy status to penicillin

== ENCOUNTER 2023-01-23 13:07 | Outpatient (CLI) | payer MEDICARE, BC, OTHER ==
[~2023-01-23] VITALS: Ht 157.5 cm; Wt 75.0 kg
[2023-01-23] MEDS ORDERED: OMALIZUMAB 150MG 1ML SYRINGE (XOLAIR) SQ ONE (13:20)
[2023-01-23] MEDS ORDERED: OMALIZUMAB 75 MG SQ ONE (13:20)
[2023-01-23 13:31] VITALS: BP 156/82; O2SAT 95
== END 2023-01-23 13:48 ==
LOC: M INFU 13:07
PROVIDERS: ATTEND Internal Medicine Pulmonary Disease
DX: J45.50 Severe persistent asthma, uncomplicated (principal); Z88.0 Allergy status to penicillin

== ENCOUNTER 2023-02-06 13:35 | Outpatient (CLI) | payer MEDICARE, BC, OTHER ==
[~2023-02-06] VITALS: Ht 157.5 cm; Wt 75.0 kg
[2023-02-06 13:35] VITALS: BP 151/70; O2SAT 97
[~2023-02-06 13:35] MED LIST changes: +OMALIZUMAB 150MG 1ML SYRINGE (XOLAIR) SQ ONE; +OMALIZUMAB 75 MG SQ ONE
== END 2023-02-06 14:00 ==
LOC: M INFU 13:35
PROVIDERS: ATTEND Internal Medicine Pulmonary Disease
DX: J45.50 Severe persistent asthma, uncomplicated (principal); Z88.0 Allergy status to penicillin

== ENCOUNTER 2023-02-20 13:00 | Outpatient (CLI) | payer MEDICARE, BC, OTHER ==
[~2023-02-20] VITALS: Ht 157.5 cm; Wt 75.0 kg
[2023-02-20 13:00] VITALS: BP 160/80; O2SAT 100
[2023-02-20 13:26] VITALS: BP 132/72; O2SAT 98
== END 2023-02-20 13:30 ==
LOC: M INFU 13:00
PROVIDERS: ATTEND Internal Medicine Pulmonary Disease
DX: J45.50 Severe persistent asthma, uncomplicated (principal); Z88.0 Allergy status to penicillin

== ENCOUNTER → 2023-03-07 | Outpatient (CLI) | payer MEDICARE, BC, OTHER ==
[~2023-03-07] VITALS: Ht 157.5 cm; Wt 75.0 kg
[2023-03-07 14:07] VITALS: BP 174/81; O2SAT 96
== END ==
LOC: M INFU 13:56
PROVIDERS: ATTEND Internal Medicine Pulmonary Disease
DX: J45.50 Severe persistent asthma, uncomplicated (principal); Z88.0 Allergy status to penicillin

== ENCOUNTER 2023-03-20 13:35 | Outpatient (CLI) | payer MEDICARE, BC, OTHER ==
[2023-03-20 13:50] VITALS: BP 140/84; O2SAT 97
== END 2023-03-20 13:50 | disposition home or self-care (01) ==
LOC: M INFU 13:35
PROVIDERS: ATTEND Internal Medicine Pulmonary Disease
DX: J45.50 Severe persistent asthma, uncomplicated (principal); Z88.0 Allergy status to penicillin

== ENCOUNTER 2023-04-03 13:45 | Outpatient (CLI) | payer MEDICARE, BC, OTHER ==
[2023-04-03 13:48] VITALS: BP 155/72; O2SAT 100
== END 2023-04-03 14:20 | disposition home or self-care (01) ==
LOC: M INFU 13:45
PROVIDERS: ATTEND Internal Medicine Pulmonary Disease
DX: J45.50 Severe persistent asthma, uncomplicated (principal); Z88.0 Allergy status to penicillin

== ENCOUNTER 2023-05-01 13:05 | Outpatient (CLI) | payer MEDICARE, BC, OTHER ==
[~2023-05-01] VITALS: Ht 157.5 cm; Wt 75.0 kg
[2023-05-01 13:05] VITALS: BP 148/84; O2SAT 98
== END 2023-05-01 13:45 | disposition home or self-care (01) ==
LOC: M INFU 13:05
PROVIDERS: ATTEND Internal Medicine Pulmonary Disease
DX: J45.50 Severe persistent asthma, uncomplicated (principal); Z88.0 Allergy status to penicillin

== ENCOUNTER 2023-05-15 13:20 | Outpatient (CLI) | payer MEDICARE, BC, OTHER ==
[~2023-05-15] VITALS: Ht 157.5 cm; Wt 75.0 kg
[~2023-05-15 13:20] MED LIST changes: -OMALIZUMAB 150MG 1ML SYRINGE (XOLAIR) SQ ONE; -OMALIZUMAB 75 MG SQ ONE
[2023-05-15 13:31] VITALS: BP 150/80; O2SAT 99
[2023-05-15] MEDS: OMALIZUMAB 75 MG SQ ONE (13:40)
[2023-05-15] MEDS: OMALIZUMAB 150MG 1ML SYRINGE (XOLAIR) SQ ONE (13:40)
== END 2023-05-15 13:50 ==
LOC: M INFU 13:20
PROVIDERS: ATTEND Internal Medicine Pulmonary Disease
DX: J45.50 Severe persistent asthma, uncomplicated (principal); Z88.0 Allergy status to penicillin

== ENCOUNTER 2023-06-05 13:05 | Outpatient (CLI) | payer MEDICARE, BC, OTHER ==
[~2023-06-05] VITALS: Ht 158.8 cm; Wt 75.0 kg
[2023-06-05 13:15] VITALS: BP 172/78; O2SAT 94
[2023-06-05] MEDS: OMALIZUMAB 150MG 1ML SYRINGE (XOLAIR) SQ ONE (13:15)
[2023-06-05] MEDS: OMALIZUMAB 75 MG SQ ONE (13:15)
== END 2023-06-05 13:30 | disposition home or self-care (01) ==
LOC: M INFU 13:05
PROVIDERS: ATTEND Internal Medicine Pulmonary Disease
DX: J45.50 Severe persistent asthma, uncomplicated (principal); Z88.0 Allergy status to penicillin

== ENCOUNTER 2023-07-03 13:09 | Outpatient (CLI) | payer MEDICARE, BC ==
[2023-07-03] MEDS: OMALIZUMAB 75 MG SQ ONE (13:29)
[2023-07-03] MEDS: OMALIZUMAB 150MG 1ML SYRINGE (XOLAIR) SQ ONE (13:30)
[2023-07-03 13:35] VITALS: BP 181/95; O2SAT 96
== END 2023-07-03 13:35 ==
LOC: M INFU 13:09
PROVIDERS: ATTEND Internal Medicine Pulmonary Disease
DX: J45.50 Severe persistent asthma, uncomplicated (principal); Z88.0 Allergy status to penicillin

== ENCOUNTER 2023-07-17 13:05 | Outpatient (CLI) | payer MEDICARE, BC ==
[~2023-07-17] VITALS: Ht 157.5 cm; Wt 74.8 kg
[2023-07-17] MEDS: OMALIZUMAB 75 MG SQ ONE (13:18)
[2023-07-17] MEDS: OMALIZUMAB 150MG 1ML SYRINGE (XOLAIR) SQ ONE (13:19)
[2023-07-17 13:21] VITALS: BP 149/76; O2SAT 98
== END 2023-07-17 13:25 ==
LOC: M INFU 13:05
PROVIDERS: ATTEND Internal Medicine Pulmonary Disease
DX: J45.50 Severe persistent asthma, uncomplicated (principal); Z88.0 Allergy status to penicillin

== ENCOUNTER 2023-07-31 13:05 | Outpatient (CLI) | payer MEDICARE, BC ==
[~2023-07-31] VITALS: Ht 157.5 cm; Wt 74.8 kg
[2023-07-31] MEDS: OMALIZUMAB 75 MG SC ONE (13:14)
[2023-07-31] MEDS: OMALIZUMAB 150MG 1ML SYRINGE (XOLAIR) SC ONE (13:14)
[2023-07-31 13:29] VITALS: BP 170/80; O2SAT 96
== END 2023-07-31 13:30 | disposition home or self-care (01) ==
LOC: M INFU 13:05
PROVIDERS: ATTEND Internal Medicine Pulmonary Disease
DX: J45.50 Severe persistent asthma, uncomplicated (principal); Z88.0 Allergy status to penicillin

== ENCOUNTER 2023-08-14 13:05 | Outpatient (CLI) | payer MEDICARE, BC ==
[2023-08-14] MEDS: OMALIZUMAB 75 MG SQ ONE (13:08)
[2023-08-14] MEDS: OMALIZUMAB 150MG 1ML SYRINGE (XOLAIR) SQ ONE (13:08)
[2023-08-14 13:14] VITALS: BP 165/85; O2SAT 95
== END 2023-08-14 13:15 | disposition home or self-care (01) ==
LOC: M INFU 13:05
PROVIDERS: ATTEND Internal Medicine Pulmonary Disease
DX: J45.50 Severe persistent asthma, uncomplicated (principal); Z88.0 Allergy status to penicillin

== ENCOUNTER 2023-08-28 13:00 | Outpatient (CLI) | payer MEDICARE, BC ==
[~2023-08-28] VITALS: Ht 157.5 cm; Wt 74.8 kg
[2023-08-28] MEDS: OMALIZUMAB 150MG 1ML SYRINGE (XOLAIR) SQ ONE (13:03)
[2023-08-28] MEDS: OMALIZUMAB 75 MG SQ ONE (13:03)
[2023-08-28 13:15] VITALS: BP 164/82; O2SAT 96
== END 2023-08-28 13:15 ==
LOC: M INFU 13:00
PROVIDERS: ATTEND Internal Medicine Pulmonary Disease
DX: J45.50 Severe persistent asthma, uncomplicated (principal); Z88.0 Allergy status to penicillin

== ENCOUNTER 2023-09-11 13:00 | Outpatient (CLI) | payer MEDICARE, BC ==
[~2023-09-11] VITALS: Ht 160 cm; Wt 75.0 kg
[2023-09-11] MEDS: OMALIZUMAB 75 MG SC ONE (13:26)
[2023-09-11] MEDS: OMALIZUMAB 150MG 1ML SYRINGE (XOLAIR) SC ONE (13:27)
[2023-09-11 13:35] VITALS: BP 175/76; O2SAT 96
== END 2023-09-11 13:35 ==
LOC: M INFU 13:00
PROVIDERS: ATTEND Internal Medicine Pulmonary Disease
DX: J45.50 Severe persistent asthma, uncomplicated (principal); Z88.0 Allergy status to penicillin

== ENCOUNTER 2023-09-25 11:35 | Outpatient (CLI) | payer MEDICARE, BC ==
[2023-09-25] MEDS: OMALIZUMAB 150MG 1ML SYRINGE (XOLAIR) SQ ONE (11:42)
[2023-09-25] MEDS: OMALIZUMAB 75 MG SQ ONE (11:42)
[2023-09-25 11:54] VITALS: BP 177/81; O2SAT 97
== END 2023-09-25 11:55 ==
LOC: M INFU 11:35
PROVIDERS: ATTEND Internal Medicine Pulmonary Disease
DX: J45.50 Severe persistent asthma, uncomplicated (principal); Z88.0 Allergy status to penicillin

== ENCOUNTER 2023-10-31 15:30 | Outpatient (CLI) | payer MEDICARE, BC ==
[~2023-10-31] VITALS: Ht 157.5 cm; Wt 75.0 kg
[2023-10-31] MEDS: OMALIZUMAB 75 MG SC ONE (15:37)
[2023-10-31] MEDS: OMALIZUMAB 150MG 1ML SYRINGE (XOLAIR) SC ONE (15:37)
[2023-10-31 15:45] VITALS: BP 146/74; O2SAT 98
== END 2023-10-31 15:45 | disposition home or self-care (01) ==
LOC: M INFU 15:30
PROVIDERS: ATTEND Internal Medicine Pulmonary Disease
DX: J45.50 Severe persistent asthma, uncomplicated (principal); Z88.0 Allergy status to penicillin

== ENCOUNTER 2023-11-13 11:10 | Outpatient (CLI) | payer MEDICARE, BC ==
[~2023-11-13] VITALS: Ht 157.5 cm; Wt 74.8 kg
[2023-11-13 11:10] VITALS: BP 168/80; O2SAT 96
[2023-11-13] MEDS: OMALIZUMAB 75 MG SQ ONE (11:14)
[2023-11-13] MEDS: OMALIZUMAB 150MG 1ML SYRINGE (XOLAIR) SQ ONE (11:15)
== END 2023-11-13 11:25 ==
LOC: M INFU 11:10
PROVIDERS: ATTEND Internal Medicine Pulmonary Disease
DX: J45.50 Severe persistent asthma, uncomplicated (principal); Z88.0 Allergy status to penicillin

== ENCOUNTER 2023-11-27 09:25 | Outpatient (CLI) | payer MEDICARE, BC ==
[~2023-11-27] VITALS: Ht 157.5 cm; Wt 75.0 kg
[2023-11-27 09:28] VITALS: BP 138/78; O2SAT 98
[2023-11-27] MEDS: OMALIZUMAB 150MG 1ML SYRINGE (XOLAIR) SQ ONE (09:37)
[2023-11-27] MEDS: OMALIZUMAB 75 MG SQ ONE (09:38)
== END 2023-11-27 09:45 ==
LOC: M INFU 09:25
PROVIDERS: ATTEND Internal Medicine Pulmonary Disease
DX: J45.50 Severe persistent asthma, uncomplicated (principal); Z88.0 Allergy status to penicillin

== ENCOUNTER 2023-12-11 09:55 | Outpatient (CLI) | payer MEDICARE, BC ==
[~2023-12-11] VITALS: Ht 157.5 cm; Wt 75.0 kg
[2023-12-11 09:55] VITALS: BP 176/88; O2SAT 96
[2023-12-11] MEDS: OMALIZUMAB 75 MG SQ ONE (09:59)
[2023-12-11] MEDS: OMALIZUMAB 150MG 1ML SYRINGE (XOLAIR) SQ ONE (09:59)
== END 2023-12-11 10:25 ==
LOC: M INFU 09:55
PROVIDERS: ATTEND Internal Medicine Pulmonary Disease
DX: J45.50 Severe persistent asthma, uncomplicated (principal); Z88.0 Allergy status to penicillin

== ENCOUNTER 2023-12-25 13:00 | Outpatient (CLI) | payer MEDICARE, BC ==
[~2023-12-25] VITALS: Ht 157.5 cm; Wt 75.4 kg
[2023-12-25 13:00] VITALS: BP 157/72; O2SAT 97
[2023-12-25] MEDS: OMALIZUMAB 150MG 1ML SYRINGE (XOLAIR) SQ ONE (13:35)
[2023-12-25] MEDS: OMALIZUMAB 75 MG SQ ONE (13:35)
== END 2023-12-25 13:40 ==
LOC: M INFU 13:00
PROVIDERS: ATTEND Internal Medicine Pulmonary Disease
DX: J45.50 Severe persistent asthma, uncomplicated (principal); Z88.0 Allergy status to penicillin

== ENCOUNTER 2024-01-08 14:25 | Outpatient (CLI) | payer MEDICARE, BC ==
[~2024-01-08] VITALS: Ht 157.5 cm; Wt 75.4 kg
[2024-01-08 14:25] VITALS: BP 142/86; O2SAT 97
[2024-01-08] MEDS: OMALIZUMAB 150MG 1ML SYRINGE (XOLAIR) SQ ONE (14:36)
[2024-01-08] MEDS: OMALIZUMAB 75 MG SQ ONE (14:36)
== END 2024-01-08 14:50 ==
LOC: M INFU 14:25
PROVIDERS: ATTEND Internal Medicine Pulmonary Disease
DX: J45.50 Severe persistent asthma, uncomplicated (principal); Z88.0 Allergy status to penicillin

== ENCOUNTER 2024-02-19 10:10 | Outpatient (CLI) | payer MEDICARE, BC ==
[~2024-02-19] VITALS: Ht 157.5 cm; Wt 75.0 kg
[2024-02-19 10:10] VITALS: BP 138/82; O2SAT 96
[2024-02-19] MEDS: OMALIZUMAB 75 MG SQ ONE (10:13)
[2024-02-19] MEDS: OMALIZUMAB 150MG 1ML SYRINGE (XOLAIR) SQ ONE (10:13)
== END 2024-02-19 10:30 ==
LOC: M INFU 10:10
PROVIDERS: ATTEND Internal Medicine Pulmonary Disease
DX: J45.50 Severe persistent asthma, uncomplicated (principal); Z88.0 Allergy status to penicillin

== ENCOUNTER → 2024-03-04 | Outpatient (CLI) | payer MEDICARE, BC ==
[~2024-03-04] VITALS: Ht 157.5 cm; Wt 75.0 kg
[2024-03-04 10:00] VITALS: BP 168/82; O2SAT 98
[2024-03-04] MEDS: OMALIZUMAB 75 MG SQ ONE (10:32)
[2024-03-04] MEDS: OMALIZUMAB 150MG 1ML SYRINGE (XOLAIR) SQ ONE (10:32)
== END ==
LOC: M INFU 09:52
PROVIDERS: ATTEND Internal Medicine Pulmonary Disease
DX: J45.50 Severe persistent asthma, uncomplicated (principal); Z88.0 Allergy status to penicillin

== ENCOUNTER 2024-03-18 09:31 | Outpatient (CLI) | payer MEDICARE, BC ==
[~2024-03-18] VITALS: Ht 157.5 cm; Wt 75.0 kg
[2024-03-18] MEDS: OMALIZUMAB 75 MG SQ ONE (09:42)
[2024-03-18] MEDS: OMALIZUMAB 150MG 1ML SYRINGE (XOLAIR) SQ ONE (09:43)
[2024-03-18 09:56] VITALS: BP 174/77; O2SAT 95
== END 2024-03-18 10:00 ==
LOC: M INFU 09:31
PROVIDERS: ATTEND Internal Medicine Pulmonary Disease
DX: J45.50 Severe persistent asthma, uncomplicated (principal); Z88.0 Allergy status to penicillin

== ENCOUNTER 2024-04-02 13:28 | Outpatient (CLI) | payer MEDICARE, BC ==
[~2024-04-02] VITALS: Ht 157.5 cm; Wt 75.0 kg
[2024-04-02] MEDS: OMALIZUMAB 150MG 1ML SYRINGE (XOLAIR) SQ ONE (13:36)
[2024-04-02] MEDS: OMALIZUMAB 75 MG SQ ONE (13:36)
[2024-04-02 13:42] VITALS: BP 146/73; O2SAT 97
== END 2024-04-02 13:45 | disposition home or self-care (01) ==
LOC: M INFU 13:28
PROVIDERS: ATTEND Internal Medicine Pulmonary Disease
DX: J45.50 Severe persistent asthma, uncomplicated (principal); Z88.0 Allergy status to penicillin

== ENCOUNTER 2024-04-21 10:34 | Outpatient (CLI) | payer MEDICARE, BC ==
[~2024-04-21 10:34] MED LIST changes: -ADV500INH INH; +ADVA1AER10 INH
[2024-04-21 10:45] VITALS: BP 138/78; O2SAT 95
[2024-04-21] MEDS: OMALIZUMAB 150MG 1ML SYRINGE (XOLAIR) SQ ONE (10:57)
[2024-04-21] MEDS: OMALIZUMAB 75 MG SQ ONE (10:57)
== END 2024-04-21 11:05 ==
LOC: M INFU 10:34
PROVIDERS: ATTEND Internal Medicine Pulmonary Disease
DX: J45.50 Severe persistent asthma, uncomplicated (principal); Z88.0 Allergy status to penicillin

== ENCOUNTER 2024-05-05 11:43 | Outpatient (CLI) | payer MEDICARE, BC ==
[2024-05-05 11:50] VITALS: BP 148/79; O2SAT 97
[2024-05-05] MEDS: OMALIZUMAB 150MG 1ML SYRINGE (XOLAIR) SQ ONE (11:52)
[2024-05-05] MEDS: OMALIZUMAB 75 MG SQ ONE (11:53)
== END 2024-05-05 12:00 ==
LOC: M INFU 11:43
PROVIDERS: ATTEND Internal Medicine Pulmonary Disease
DX: J45.50 Severe persistent asthma, uncomplicated (principal); Z88.0 Allergy status to penicillin

== ENCOUNTER 2024-05-19 11:05 | Outpatient (CLI) | payer MEDICARE, BC ==
[2024-05-19 11:10] VITALS: BP 170/90; O2SAT 98
[2024-05-19] MEDS: OMALIZUMAB 75 MG SQ ONE (11:20)
[2024-05-19] MEDS: OMALIZUMAB 150MG 1ML SYRINGE (XOLAIR) SQ ONE (11:21)
== END 2024-05-19 11:30 ==
LOC: M INFU 11:05
PROVIDERS: ATTEND Internal Medicine Pulmonary Disease
DX: J45.50 Severe persistent asthma, uncomplicated (principal); Z88.0 Allergy status to penicillin

== ENCOUNTER 2024-06-02 11:10 | Outpatient (CLI) | payer MEDICARE, BC ==
[2024-06-02 11:20] VITALS: BP 165/92; O2SAT 97
[2024-06-02] MEDS: OMALIZUMAB 75 MG SQ ONE (11:23)
[2024-06-02] MEDS: OMALIZUMAB 150MG 1ML SYRINGE (XOLAIR) SQ ONE (11:23)
== END 2024-06-02 11:30 ==
LOC: M INFU 11:10
PROVIDERS: ATTEND Internal Medicine Pulmonary Disease
DX: J45.50 Severe persistent asthma, uncomplicated (principal); Z88.0 Allergy status to penicillin

== ENCOUNTER 2024-06-24 13:10 | Outpatient (CLI) | payer MEDICARE, BC ==
[~2024-06-24] VITALS: Ht 160 cm; Wt 75.0 kg
[2024-06-24] MEDS: OMALIZUMAB 150MG 1ML SYRINGE (XOLAIR) SC ONE (13:16)
[2024-06-24] MEDS: OMALIZUMAB 75 MG SC ONE (13:17)
[2024-06-24 13:25] VITALS: O2SAT 95
== END 2024-06-24 13:25 ==
LOC: M INFU 13:10
PROVIDERS: ATTEND Internal Medicine Pulmonary Disease
DX: J45.50 Severe persistent asthma, uncomplicated (principal); Z88.0 Allergy status to penicillin

== ENCOUNTER 2024-07-08 13:05 | Outpatient (CLI) | payer MEDICARE, BC ==
[~2024-07-08] VITALS: Ht 157.5 cm; Wt 75.0 kg
[2024-07-08] MEDS: OMALIZUMAB 150MG 1ML SYRINGE (XOLAIR) SQ ONE (13:17)
[2024-07-08] MEDS: OMALIZUMAB 75 MG SQ ONE (13:18)
== END 2024-07-08 13:30 ==
LOC: M INFU 13:05
PROVIDERS: ATTEND Internal Medicine Pulmonary Disease
DX: J45.50 Severe persistent asthma, uncomplicated (principal); Z88.0 Allergy status to penicillin

== ENCOUNTER 2024-07-22 13:00 | Outpatient (CLI) | payer MEDICARE, BC ==
[~2024-07-22] VITALS: Ht 157.5 cm; Wt 75.0 kg
[2024-07-22 13:00] VITALS: BP 142/94; O2SAT 98
[2024-07-22] MEDS: OMALIZUMAB 75 MG SQ ONE (13:04)
[2024-07-22] MEDS: OMALIZUMAB 150MG 1ML SYRINGE (XOLAIR) SQ ONE (13:05)
== END 2024-07-22 13:10 | disposition home or self-care (01) ==
LOC: M INFU 13:00
PROVIDERS: ATTEND Internal Medicine Pulmonary Disease
DX: J45.50 Severe persistent asthma, uncomplicated (principal); Z88.0 Allergy status to penicillin

== ENCOUNTER 2024-08-05 13:00 | Outpatient (CLI) | payer MEDICARE, BC ==
[~2024-08-05] VITALS: Ht 157.5 cm; Wt 76.4 kg
[2024-08-05 13:05] VITALS: BP 162/74; O2SAT 99
[2024-08-05] MEDS: OMALIZUMAB 75 MG SQ ONE (13:08)
[2024-08-05] MEDS: OMALIZUMAB 150MG 1ML SYRINGE (XOLAIR) SQ ONE (13:08)
== END 2024-08-05 13:15 | disposition home or self-care (01) ==
LOC: M INFU 13:00
PROVIDERS: ATTEND Internal Medicine Pulmonary Disease
DX: J45.50 Severe persistent asthma, uncomplicated (principal); Z88.0 Allergy status to penicillin

== ENCOUNTER 2024-08-19 13:15 | Outpatient (CLI) | payer MEDICARE, BC ==
[2024-08-19 13:15] VITALS: BP 151/72; O2SAT 97
[2024-08-19] MEDS: OMALIZUMAB 150MG/1ML SYRINGE SQ ONE (13:26)
[2024-08-19] MEDS: OMALIZUMAB 75 MG/0.5 ML SQ ONE (13:26)
== END 2024-08-19 13:25 ==
LOC: M INFU 13:15
PROVIDERS: ATTEND Internal Medicine Pulmonary Disease
DX: J45.50 Severe persistent asthma, uncomplicated (principal); Z88.0 Allergy status to penicillin

== ENCOUNTER 2024-10-07 12:45 | Outpatient (CLI) | payer MEDICARE, BC ==
[~2024-10-07] VITALS: Ht 157.5 cm; Wt 75.0 kg
[2024-10-07 13:00] VITALS: BP 151/89; O2SAT 98
[2024-10-07] MEDS: OMALIZUMAB 75 MG/0.5 ML SQ ONE (13:02)
[2024-10-07] MEDS: OMALIZUMAB 150MG/1ML SYRINGE SQ ONE (13:02)
== END 2024-10-07 13:10 ==
LOC: M INFU 12:45
PROVIDERS: ATTEND Internal Medicine Pulmonary Disease
DX: J45.50 Severe persistent asthma, uncomplicated (principal); Z88.0 Allergy status to penicillin

== ENCOUNTER 2024-10-28 12:38 | Outpatient (CLI) | payer MEDICARE, BC ==
[~2024-10-28] VITALS: Ht 157.5 cm; Wt 75.0 kg
[2024-10-28 12:45] VITALS: BP 151/79; O2SAT 97
[2024-10-28] MEDS: OMALIZUMAB 150MG/1ML SYRINGE SQ ONE (13:04)
[2024-10-28] MEDS: OMALIZUMAB 75 MG/0.5 ML SQ ONE (13:05)
== END 2024-10-28 13:05 ==
LOC: M INFU 12:38
PROVIDERS: ATTEND Internal Medicine Pulmonary Disease
DX: J45.50 Severe persistent asthma, uncomplicated (principal); Z88.0 Allergy status to penicillin

== ENCOUNTER 2024-12-02 13:07 | Outpatient (CLI) | payer MEDICARE, BC ==
[~2024-12-02] VITALS: Ht 157.5 cm; Wt 75.0 kg
[2024-12-02] MEDS: OMALIZUMAB 150MG/1ML SYRINGE SQ ONE (13:37)
[2024-12-02] MEDS: OMALIZUMAB 75 MG/0.5 ML SQ ONE (13:38)
== END 2024-12-02 13:42 | disposition home or self-care (01) ==
LOC: M INFU 13:07
PROVIDERS: ATTEND Internal Medicine Pulmonary Disease
DX: J45.50 Severe persistent asthma, uncomplicated (principal); Z88.0 Allergy status to penicillin

== ENCOUNTER 2024-12-16 12:49 | Outpatient (CLI) | payer MEDICARE, BC ==
[~2024-12-16] VITALS: Ht 157.5 cm; Wt 75.0 kg
[2024-12-16] MEDS: OMALIZUMAB 75 MG/0.5 ML SQ ONE (13:10)
[2024-12-16] MEDS: OMALIZUMAB 150MG/1ML SYRINGE SQ ONE (13:11)
[2024-12-16 13:13] VITALS: BP 143/71; O2SAT 97
== END 2024-12-16 13:15 ==
LOC: M INFU 12:49
PROVIDERS: ATTEND Internal Medicine Pulmonary Disease
DX: J45.50 Severe persistent asthma, uncomplicated (principal); Z88.0 Allergy status to penicillin

== ENCOUNTER 2024-12-30 13:00 | Outpatient (CLI) | payer MEDICARE, BC ==
[~2024-12-30] VITALS: Ht 157.5 cm; Wt 75.0 kg
[2024-12-30 13:00] VITALS: BP 151/85; O2SAT 98
[2024-12-30] MEDS: OMALIZUMAB 150MG/1ML SYRINGE SQ ONE (13:16)
[2024-12-30] MEDS: OMALIZUMAB 75 MG/0.5 ML SQ ONE (13:17)
== END 2024-12-30 13:25 | disposition home or self-care (01) ==
LOC: M INFU 13:00
PROVIDERS: ATTEND Internal Medicine Pulmonary Disease
DX: J45.50 Severe persistent asthma, uncomplicated (principal); Z88.0 Allergy status to penicillin

== ENCOUNTER 2025-01-13 13:02 | Outpatient (CLI) | payer MEDICARE, BC ==
[~2025-01-13] VITALS: Ht 157.5 cm; Wt 75.0 kg
[2025-01-13] MEDS: OMALIZUMAB 150MG/1ML SYRINGE SQ ONE (13:21)
[2025-01-13] MEDS: OMALIZUMAB 75 MG/0.5 ML SQ ONE (13:21)
[2025-01-13 13:30] VITALS: BP 162/80; O2SAT 95
== END 2025-01-13 13:30 ==
LOC: M INFU 13:02
PROVIDERS: ATTEND Internal Medicine Pulmonary Disease
DX: J45.50 Severe persistent asthma, uncomplicated (principal); Z88.0 Allergy status to penicillin

== ENCOUNTER 2025-02-11 13:47 | Outpatient (CLI) | payer MEDICARE, BC ==
[~2025-02-11] VITALS: Ht 157.5 cm; Wt 75.0 kg
[2025-02-11 13:55] VITALS: BP 137/63; O2SAT 96
[2025-02-11] MEDS: OMALIZUMAB 150MG/1ML SYRINGE SQ ONE (14:01)
[2025-02-11] MEDS: OMALIZUMAB 75 MG/0.5 ML SQ ONE (14:02)
== END 2025-02-11 14:10 | disposition home or self-care (01) ==
LOC: M INFU 13:47
PROVIDERS: ATTEND Internal Medicine Pulmonary Disease
DX: J45.50 Severe persistent asthma, uncomplicated (principal); Z88.0 Allergy status to penicillin

== ENCOUNTER 2025-03-03 13:33 | Outpatient (CLI) | payer MEDICARE, BC ==
[~2025-03-03] VITALS: Ht 157.5 cm; Wt 75.0 kg
[2025-03-03 13:52] VITALS: BP 143/74; O2SAT 96
[2025-03-03] MEDS: OMALIZUMAB 150MG/1ML SYRINGE SQ ONE (14:07)
[2025-03-03] MEDS: OMALIZUMAB 75 MG/0.5 ML SQ ONE (14:08)
== END 2025-03-03 14:15 | disposition home or self-care (01) ==
LOC: M INFU 13:33
PROVIDERS: ATTEND Internal Medicine Pulmonary Disease
DX: J45.50 Severe persistent asthma, uncomplicated (principal); Z88.0 Allergy status to penicillin